=== PATIENT | female | born 1980 | race Caucasian/White ===

== ENCOUNTER 2017-04-13 17:31 | Emergency (ER) | payer BC, MEDICAID ==
[~2017-04-13] VITALS: Ht 154.9 cm; Wt 113.4 kg
[2017-04-13 17:59] LABS: BILIRUBIN,URINE NEGATIVE (NEG); GLUCOSE,URINE NEGATIVE (NEG); NITRITE,URINE POSITIVE (NEG); PH,URINE 5.5; PROTEIN,URINE NEGATIVE (NEG-TRACE); UROBILINOGEN,URINE 0.2 mg/dL (0.2 mg/dL)
[2017-04-13 18:05] LABS: BACTERIA,URINE MANY /HPF (0-FEW); SQUAMOUS EPITHELIAL CELL,UR MANY /LPF; WBC,URINE TNTC /HPF (0-4)
--- NOTE | 2017-04-13 18:17 | PHYS DOC ---
Past Medical History Past Medical History: Diabetes-Type II, Hypertension, Kidney Infection Additional Past Medical Histor: MS (has been in wheelchair for past 12 years) Past Surgical History: Appendectomy Alcohol Use: None Drug Use: None Adult General Chief Complaint Chief Complaint: FLANK PAIN HPI HPI 36-year-old female presenting to the emergency department with suprapubic abdominal pain and bilateral flank pain. The patient is been present for more than 24 hours. It is a moderate pain that is nonradiating intermittent throbbing and not associated with any vomiting chest pain or shortness of breath. She reports a history of UTIs in the past. She denies any numbness, weakness or tingling. She denies urinary incontinence. She denies perineal paresthesias. Review of systems is negative for chest pain shortness of breath fevers chills. All other review of systems is negative unless otherwise noted in history of present illness. ED course: 36-year-old female with bilateral flank pain and suprapubic abdominal pain consistent with possible pyelonephritis. Vital signs show hypertension but otherwise the patient is afebrile with a normal heart rate. Urine Analysis suggestive of UTI. The patient was then treated with oral Levaquin to follow-up with her primary care physician in 4-5 days. Oral pain medication prescribed. The patient was then discharged home in stable condition to follow up with their primary care physician over the next 2-3 days. They were to return if their symptoms worsened or if they were concerned for any reason. [id number] discharge instructions and return precautions were given. Patient's questions were answered to their satisfaction. Patient is comfortable plan. Review of Systems Review of Systems SEE ABOVE. Allergies Allergies Allergies Coded Allergies Type Severity Reaction Last Updated Verified No Known Drug Allergies 04/13/17 No Physical Exam Physical Exam Constitutional: Well developed, well nourished, no acute distress, non-toxic appearance. [] HENT: Normocephalic, atraumatic, bilateral external ears normal, oropharynx moist, no oral exudates, nose normal. [] Eyes: PERRLA, EOMI, conjunctiva normal, no discharge. [] Neck: Normal range of motion, no tenderness, supple, no stridor. [] Cardiovascular:Heart rate regular rhythm, no murmur [] Lungs & Thorax: Bilateral breath sounds clear to auscultation [] Abdomen: Soft nontender abdomen without rebound tenderness or guarding present. Negative McBurneys point. Negative Lewis sign. No ecchymosis present. Skin: Warm, dry, no erythema, no rash. [] Back: No midline tenderness present. No lacerations abrasions ecchymosis or fluctuance. mild bilateral CVA tenderness present. Extremities: No tenderness, no cyanosis, no clubbing, ROM intact, no edema. [] Neurologic: Alert and oriented X 3, normal motor function, normal sensory function, no focal deficits noted. [] Psychologic: Affect normal, judgement normal, mood normal. [] Current Patient Data Vital Signs Vital Signs Date Time Temp Pulse Resp B/P (MAP) Pulse Ox O2 Delivery O2 Flow Rate FiO2 04/13/17 18:00 98 20 191/84 (119) 100 04/13/17 17:47 97.8 Room Air 97.8 Lab Values Laboratory Tests Test 04/13/17 16:56 04/13/17 17:45 POC Urine HCG, Qualitative Hcg negative (Negative) Urine Collection Type Void Urine Color Yellow Urine Clarity Turbid Urine pH 5.5 Urine Specific [place] 1.020 Urine Protein Negative mg/dL (NEG-TRACE) Urine Glucose (UA) Negative mg/dL (NEG) Urine Ketones (Stick) Negative mg/dL (NEG) Urine Blood Moderate (NEG) Urine Nitrite Positive (NEG) Urine Bilirubin Negative (NEG) Urine Urobilinogen Dipstick 0.2 mg/dL (0.2 mg/dL) Urine Leukocyte Esterase Large (NEG) Urine RBC 1-2 /HPF (0-2) Urine WBC Tntc /HPF (0-4) Urine Squamous Epithelial Cells Many /LPF Urine Bacteria Many /HPF (0-FEW) Urine Mucus Marked /LPF EKG EKG [] Radiology/Procedures Radiology/Procedures [] Course & Med Decision Making Course & Med Decision Making Pertinent Labs and Imaging studies reviewed. (See chart for details) [] Dragon Disclaimer Dragon Disclaimer This electronic medical record was generated, in whole or in part, using a voice recognition dictation system. Departure Departure Impression: Primary Impression: Pyelonephritis Disposition: HOME, SELF-CARE Condition: STABLE Referrals: MARIELOS MASSEY MD Patient Instructions: Pyelonephritis, Adult Additional Instructions: Thank you for allowing us to participate in your care today. Followup with your primary care physician in 3 days if your symptoms do not improve. Call your Primary Doctor tomorrow and inform them of your visit today. If you do not have a primary care provider you can ask for a list of our primary care providers. Return to the emergency department you have any new or concerning findings. This should be evaluated by the primary care physician and any necessary consulting services for continued management within a few days after discharge. Return to emergency room if you have any new or concerning symptoms including but not limited to fever, chills, nausea, vomiting, intractable pain, any new rashes, chest pain, shortness of air, uncontrolled bleeding, difficulty breathing, and/or vision loss. Scripts Levofloxacin (LEVOFLOXACIN) 500 Mg Tablet 1 TAB PO DAILY, #10 TAB 0 Refills Prov: MARGARET CRANE MD 04/13/17 Hydrocodone Bit/Acetaminophen (HYDROCODONE-APAP 5-325 ) 1 Each Tablet 1 TAB PO PRN Q6HRS Y for PAIN, #15 TAB 0 Refills Be careful as this medication may cause you to be drowsy or tired. Do not drive on this medication. Prov: MARGARET CRANE MD 04/13/17 MARGARET CRANE MD Apr 13, 2017 18:17
[2017-04-13] MEDS ORDERED: LEVO500T8 PO (18:20)
[2017-04-13] MEDS ORDERED: HYDR-2758 PO (18:20)
[2017-04-13 18:27] VITALS: BP 168/77
== END 2017-04-13 19:05 | disposition home or self-care (01) ==
LOC: ER 17:31
DX: N12 Tubulo-interstitial nephritis, not specified as acute or chronic (principal); I10 Essential (primary) hypertension; E11.9 Type 2 diabetes mellitus without complications; G35 Multiple sclerosis; Z90.49 Acquired absence of other specified parts of digestive tract
CPT/HCPCS: 81001; 81025; 87086; 87186; 99284

== ENCOUNTER 2020-10-17 12:54 | Inpatient (IN) | payer BC, MEDICAID ==
[~2020-10-17] VITALS: Ht 154.9 cm; Wt 113.0 kg
[~2020-10-17 12:54] MED LIST: ALBU2.5V14 NEB; ALPR0.5T6 PO; AMLO-186 PO; BUDE10.2 IH; HYDR-2761 PO; LEVO500T8 PO; LOSA100T14 PO; PANT40TA77 PO; VENTOLIN HFA18 GM INH
[2020-10-17] MEDS ORDERED: ACETAMINOPHEN 325 MG TABLET. PO ONE (13:15)
[2020-10-17] MEDS ORDERED: IV NORMAL SALINE 1000ML BAG 1,000 ML IV ONE ×2 (13:15)
[2020-10-17] MEDS ORDERED: ONDANSETRON PF 4 MG/2 ML VIAL. IVP ONE (13:15)
[2020-10-17] MEDS ORDERED: PIPERACILLIN/TAZOBACTAM 3.375 GM in IV NORMAL SALINE 50ML 50 ML IV ONE (13:15)
[2020-10-17] MEDS ORDERED: methylPREDNISolone SOD SUCC PF 125 MG/2 ML VIAL. IV ONE (13:15)
[2020-10-17] MEDS ORDERED: fentaNYL PF VIAL 100 MCG/2 ML VIAL IVP ONE (13:15)
[2020-10-17 13:22] LABS: BASO % 0 % (0-3); EOS % 0 % (0-3); HEMATOCRIT 37.4 % (36.0-47.0); HEMOGLOBIN 12.5 g/dL (12.0-15.5); LYMPH # 0.3 x10^3/uL (1.0-4.8); LYMPH % 3 % (24-48); MEAN CORPUSCULAR HEMOGLOBIN 27 pg (25-35); MEAN CORPUSCULAR HGB CONC 33 g/dL (31-37); MEAN CORPUSCULAR VOLUME 79 fL (79-100); MONO # 0.1 x10^3/uL (0.0-1.1); MONO % 2 % (0-9); NEUT # 7.2 x10^3/uL (1.8-7.7); NEUT % 95 % (31-73); PLATELET COUNT 188 x10^3/uL (140-400); RED BLOOD COUNT 4.73 x10^6/uL (3.50-5.40); RED CELL DISTRIBUTION WIDTH 14.7 % (11.5-14.5); WHITE BLOOD COUNT 7.6 x10^3/uL (4.0-11.0)
--- NOTE | 2020-10-17 13:22 | PHYS DOC ---
Past Medical History Past Medical History: Asthma, Diabetes-Type II, Hypertension, Kidney Infection Additional Past Medical Histor: MS (has been in wheelchair for past 12 years) Past Surgical History: Appendectomy Smoking Status: Former Smoker Alcohol Use: None Drug Use: None General Adult EDM: Chief Complaint: NAUSEA/VOMITING/DIARRHA HPI: HPI: Patient is a 39 year old Female who presents with here by EMS for 2 days of nausea, vomiting, diarrhea, dizziness, epigastric pain from vomiting, wheezing and shortness of breath. Patient states she cannot keep anything down. Patient does have a fever of 100.6 axillary in the ED. patient states she has not been taking any of your medications due to her vomiting. Patient is hypertensive in the 200s over 100s in the ED. Heart rate is 126. Patient rates her pain a 7 out of 10 in the epigastric area. Patient denies headache, chest pain, numbness or tingling, focal weakness, back pain, urinary symptoms, syncope. Patient has a history of hypertension, kidney infection, diabetes, MS of which she has been wheelchair bound for 12 years, appendectomy, asthma, former smoker. Review of Systems: Review of Systems: Constitutional: + fever or chills. [] Eyes: Denies change in visual acuity. [] HENT: Denies nasal congestion or sore throat. [] Respiratory: Denies cough or +shortness of breath. [] Cardiovascular: Denies chest pain or edema. [] GI: + Epigastric abdominal pain, +nausea, +vomiting, denies bloody stools or +diarrhea. [] : Denies dysuria. [] Musculoskeletal: Denies back pain or joint pain. [] Integument: Denies rash. [] Neurologic: Denies headache, focal weakness or sensory changes. + Lightheaded [] Endocrine: Denies polyuria or polydipsia. [] Lymphatic: Denies swollen glands. [] Psychiatric: Denies depression or anxiety. [] Heart Score: C/O Chest Pain: No Risk Factors: Risk Factors: DM, Current or recent (<one month) smoker, HTN, HLP, family history of CAD, obesity. Risk Scores: Score 0 - 3: 2.5% MACE over next 6 weeks - Discharge Home Score 4 - 6: 20.3% MACE over next 6 weeks - Admit for Clinical Observation Score 7 - 10: 72.7% MACE over next 6 weeks - Early Invasive Strategies Current Medications: Current Medications Medications (Trade) Dose Ordered Sig/Bryan Start Time Stop Time Status Last Admin Dose Admin Albuterol Sulfate (Ventolin Neb Soln) 2.5 mg 1X ONCE 10/17/20 13:15 10/17/20 13:16 UNV Fentanyl Citrate (Fentanyl 2ml Vial) 50 mcg 1X ONCE 10/17/20 13:15 10/17/20 13:16 UNV Methylprednisolone Sodium Succinate (SOLU-Medrol 125MG VIAL) 125 mg 1X ONCE 10/17/20 13:15 10/17/20 13:16 UNV Ondansetron HCl (Zofran) 4 mg 1X ONCE 10/17/20 13:15 10/17/20 13:16 UNV Piperacillin Sod/ Tazobactam Sod 3.375 gm/Sodium Chloride 50 ml @ 100 mls/hr 1X ONCE 10/17/20 13:15 10/17/20 13:44 UNV Sodium Chloride 1,000 ml @ 1,000 mls/hr 1X ONCE 10/17/20 13:15 10/17/20 14:14 UNV Allergies: Allergies: Allergies Coded Allergies Type Severity Reaction Last Updated Verified No Known Drug Allergies 07/14/17 No Physical Exam: PE: Constitutional: Well developed, well nourished, no acute distress, non-toxic appearance. Febrile [] HENT: Normocephalic, atraumatic, bilateral external ears normal, oropharynx moist, no oral exudates, nose normal. [] Eyes: PERRLA, EOMI, conjunctiva normal, no discharge. [] Neck: Normal range of motion, no tenderness, supple, no stridor. [] Cardiovascular:Heart rate regular rhythm, no murmur [] Lungs & Thorax: Bilateral upper breath sounds wheezing in lower bases diminished to auscultation [] Abdomen: Bowel sounds normal, soft, no tenderness, no masses, no pulsatile masses. [] Skin: Warm, dry, no erythema, no rash. [] Back: No tenderness, no CVA tenderness. [] Extremities: No tenderness, no cyanosis, no clubbing, ROM intact, no edema. [] Neurologic: Alert and oriented X 3, normal motor function, normal sensory function, no focal deficits noted. [] Psychologic: Affect normal, judgement normal, mood normal. [] EKG: EKG: Sinus tach at [address] Tay Radiology/Procedures: Radiology/Procedures: [] Impression: [place] [id number] [place] [id number] IMAGING REPORT Signed PATIENT: EDGARDO MORA JACCOUNT: [id number] : 1980 LOCATION: ER AGE: 39 SEX: F EXAM STATUS: REG ER ORD. PHYSICIAN: ELIPDIO GRANADOS APRN REASON: wheezing, soa, PROCEDURE: PORTABLE CHEST 1V AP chest. HISTORY: Wheezing, short of air AP view was taken of the chest. Patient's taken a poor inspiration. There are no confluent infiltrates. Heart is normal in size. IMPRESSION: 1. No acute infiltrates. Electronically signed by: Lukasz Mccray MD (10/17/2020 2:03 PM) [id number] DICTATED and SIGNED BY: LUKASZ MCCRAY MD DATE: 10/17/20 [id number] [place] [id number] [place] [address] IMAGING REPORT Signed PATIENT: EDGARDO MORA JACCOUNT: [id number] : 1980 LOCATION: ER AGE: 39 SEX: F EXAM STATUS: REG ER ORD. PHYSICIAN: ELPIDIO GRANADOS APRN REASON: fever, diarrhea, vomiting PROCEDURE: CT ABD PELV W/ IV CONTRST ONLY Exam: CT of abdomen and pelvis with contrast INDICATION: Fever, diarrhea, vomiting TECHNIQUE: Sequential axial images through the abdomen and pelvis obtained following the administration of 75 mL of Omni 300 IV contrast. Sagittal and coronal reformatted images were reconstructed from the axial data and reviewed. Comparisons: None FINDINGS: Heart size is normal. No pericardial. Visualized lung bases are clear. No pleural effusion. There is diffuse hepatic steatosis. Spleen, pancreas, and adrenals are unremarkable. Gallbladder surgically absent. No perinephric inflammation or hydronephrosis. No renal or ureteral calculi are identified. Bladder is distended and appears thin-walled. Uterus is not enlarged. No abnormal adnexal mass. Large and small bowel are unremarkable. Appendix is not identified. No free intra-abdominal air or fluid. No obstruction. Abdominal aorta has a normal course and caliber. Abdominal vasculature is patent. No enlarged intra-abdominal lymph nodes are identified. No suspicious osseous lesions or acute fractures. IMPRESSION: 1. No acute processes identified within the abdomen or pelvis. 2. Diffuse hepatic steatosis. Exposure: One or more of the following in the visualized dose reduction techniques were utilized for this examination: 1. Automated exposure control 2. Adjustment of the MA and/or KV according to patient size 3. Use of iterative of reconstructive technique Electronically signed by: Eddie Stewart MD (10/17/2020 3:33 PM) [facility] DICTATED and SIGNED BY: EDDIE STEWART MD DATE: 10/17/20 [id number] Course & Med Decision Making: Course & Med Decision Making Pertinent Labs and Imaging studies reviewed. (See chart for details) See HPI. Alert and oriented x4. Patient is hyperventilating in the room. Speaks in full clear sentences. Skin is pink, warm and dry. Patient does have some audible wheezing. She has slight wheezing in the upper lobes bilaterally but diminished in lower bases. Abdomen is soft and nontender. She is morbidly obese. No extremity edema. Patient did dip down wants to 88% on room air. Nurse put her on 2 L of oxygen. ABG was done before this occurrence and was done on room air. Patient remains at 96 to 97% on 2L. I did have Dr. Tay look over the ABG. I have spoken to Dr. Banegas for admission. Patient has gotten 2 L of normal saline and Zosyn in the ED. She is a sepsis alert. Heart rate is down to 99. [] Dragon Disclaimer: Dragon Disclaimer: This electronic medical record was generated, in whole or in part, using a voice recognition dictation system. Date and Time of Reassessment Date: Oct 17, 2020 Time: 13:20 Fluid Challenge Is the fluid challenge complet: No IBW Target Volume Used: No BMI > 30: Yes Vital Signs Temperature Source: Axillary Respirations Respiratory Effort: Non-Labored Respiratory Pattern: Tachypnea Cardiovascular Pulse Rhythm: Regular Heart: Nml S1, S2, no murmurs Lung Sounds Breath Sounds: Wheezes Capillary Refil Capillary Refill: Rt Hand < 3 seconds Peripheral Pulse Pulse Location: Radial Pulse Strength: Normal (2+) Pulse Assessment Method: Monitor Integumentary Skin: Warm Skin Moisture: Dry Skin Turgor: Normal Skin Color: warm Fingernail Color: WNL COVID-19 Patient Risks: Age 65 or older: No Sign of co-morbidity: Yes Exp to person + for COVID: No Exp to PUI: No Travel from affected area: No Lower respiratory symptoms: Yes Fever: Yes Other: Yes (N/V/D) PPE Use: Full PPE with N95 mask or PAPR: Yes Departure Departure Impression: Primary Impression: Sepsis Qualified Codes: A41.9 - Sepsis, unspecified organism Additional Impression: Hypoxia Disposition: 09 ADMITTED INPT THIS HOSP Admitting Physician: SHAVON Condition: STABLE Referrals: EVARISTO WILCOX (PCP) ELPIDIO GRANADOS APRN Oct 17, 2020 13:22
[2020-10-17] MEDS ORDERED: ALBUTEROL SULFATE 8GM INHALER. INH ONE (13:30)
[2020-10-17 13:54] LABS: BASE EXCESS COOX -4 mmol/L (-3-3); HCO3 COOX 20 mmol/L (21-28); METHEMOGLOBIN 0.6 % (0.0-1.9); OXYHEMOGLOBIN 90.5 %; PCO2 COOX 32 mmHg (35-46); PO2 COOX 62 mmHg (75-108); SAT O2 COOX 91 % (92-99)
--- NOTE | 2020-10-17 14:06 | RAD ---
AP chest. HISTORY: Wheezing, short of air AP view was taken of the chest. Patient's taken a poor inspiration. There are no confluent infiltrate s. Heart is normal in size. IMPRESSION: 1. No acute infiltrates. Electronically signed by: Lukasz Mccray MD (10/17/2020 2:03 PM) [id number]
[2020-10-17 14:14] LABS: CALCIUM 8.2 mg/dL (8.5-10.1); CREATININE 0.8 mg/dL (0.6-1.0); GFR 79.4; POTASSIUM 3.7 mmol/L (3.5-5.1)
[2020-10-17 14:21] LABS: ALBUMIN 3.2 g/dL (3.4-5.0); ALBUMIN/GLOBULIN RATIO 0.7 (1.0-1.7); TOTAL BILIRUBIN 0.7 mg/dL (0.2-1.0); TOTAL PROTEIN 7.6 g/dL (6.4-8.2)
[2020-10-17 14:28] LABS: BILIRUBIN,URINE NEGATIVE (NEG); CLARITY,URINE CLEAR; COLOR,URINE YELLOW; NITRITE,URINE NEGATIVE (NEG); PH,URINE 5.5 (<5.0-8.0); PROTEIN,URINE 100 mg/dL (NEG-TRACE)
[2020-10-17] MEDS ORDERED: IOHEXOL 300 MG/ML 100ML VIAL. IV ONE (14:30)
[2020-10-17 14:42] LABS: BACTERIA,URINE MODERATE /HPF (0-FEW)
[2020-10-17 14:43] LABS: RBC,URINE RARE /HPF (0-2); U PREG PATIENT NEGATIVE (NEG)
[2020-10-17] MEDS ORDERED: CONTRAST GIVEN. MC PRN (14:45)
[2020-10-17 15:03] LABS: % BANDS 6 % (0-9); % LYMPHS 3 % (24-48); % MONOS 1 % (0-10); % SEGS 90 % (35-66); PLT ESTIMATE ADEQUATE (ADEQUATE)
--- NOTE | 2020-10-17 15:36 | RAD ---
Exam: CT of abdomen and pelvis with contrast INDICATION: Fever, diarrhea, vomiting TECHNIQUE: Sequential axial images through the abdomen and pelvis obtained following the administrati on of 75 mL of Omni 300 IV contrast. Sagittal and coronal reformatted images were reconstructed from the axial data and reviewed. Comparisons: None FINDINGS: Heart size is normal. No pericardial. Visualized lung bases are clear. No pleural effusion. There is diffuse hepatic steatosis. Spleen, pancreas, and adrenals are unremarkable. Gallbladder surg ically absent. No perinephric inflammation or hydronephrosis. No renal or ureteral calculi are identified. Bladder is distended and appears thin-walled. Uterus is not enlarged. No abnormal adnexal mass. Large and small bowel are unremarkable. Appendix is not identified. No free intra-abdominal air or fl uid. No obstruction. Abdominal aorta has a normal course and caliber. Abdominal vasculature is patent. No enlarged intra-abdominal lymph nodes are identified. No suspicious osseous lesions or acute fractures. IMPRESSION: 1. No acute processes identified within the abdomen or pelvis. 2. Diffuse hepatic steatosis. Exposure: One or more of the following in the visualized dose reduction techniques were utilized for this examination: 1. Automated exposure control 2. Adjustment of the MA and/or KV according to patient size 3. Use of iterative of reconstructive technique Electronically signed by: Eddie Sanon MD (10/17/2020 3:33 PM) [facility]
[2020-10-17 16:00] LABS: PROTHROMBIN TIME PATIENT 13.3 SEC (11.7-14.0)
[2020-10-17] MEDS ORDERED: ONDANSETRON PF 4 MG/2 ML VIAL. IV PRN (16:00)
[2020-10-17 17:11] LABS: INFLUENZA A PATIENT NEGATIVE (NEGATIVE); INFLUENZA B PATIENT NEGATIVE (NEGATIVE)
--- NOTE | 2020-10-17 18:45 | HP ---
ADMIT DATE: 10/17/2020 CHIEF COMPLAINT: Nausea, vomiting, diarrhea. HISTORY OF PRESENT ILLNESS: The patient is a pleasant 39-year-old female who presented with nausea, vomiting and diarrhea. She came in by EMS to the Emergency Room. This has been occurring for 2 days. She has some associated dizziness, rated at 9/10. She tried increasing her home meds, but that did not work. Food makes it worse, sitting still makes it better. While in the ER, she was also hypertensive with pressures in the 200/100. She is tachycardic with a heart rate of 126. It appears to be septic. We are not exactly sure of the source of the sepsis, but clinically she seems to possibly have pneumonia. We are going to admit the patient and consult Infectious Disease. PAST MEDICAL HISTORY: Asthma, diabetes, hypertension, urinary tract infection, MS (she has been in a wheelchair for the past 12 years), appendectomy, previous tobacco abuse. ALLERGIES: None. FAMILY HISTORY: Hypertension. SOCIAL HISTORY: She used to smoke. No drink or drugs. MEDICATIONS: Reviewed, please see the MRAD. REVIEW OF SYSTEMS: GENERAL: No history of weight change, weakness or fevers. SKIN: No bruising, hair changes or rashes. EYES: No blurred, double or loss of vision. NOSE AND THROAT: No history of nosebleeds, hoarseness or sore throat. HEART: No history of palpitations, chest pain or shortness of breath on exertion. LUNGS: Denies cough, hemoptysis, wheezing or shortness of breath. GASTROINTESTINAL: She complains of nausea, vomiting and diarrhea. GENITOURINARY: No history of frequency, urgency, hesitancy or nocturia. NEUROLOGIC: Denies history of numbness, tingling, tremor or weakness. PSYCHIATRIC: No history of panic, anxiety or depression. ENDOCRINE: No history of heat or cold intolerance, polyuria or polydipsia. EXTREMITIES: Denies muscle weakness, joint pain, pain on walking or stiffness. PHYSICAL EXAMINATION: VITALS: Within normal limits and are stable. GENERAL: No apparent distress. Alert and oriented. HEENT: Normal cephalic atraumatic, external auditory canals are patent EYES: Extraocular muscles are intact, pupils are equally round and reactive to light and accommodation MUSCULOSKELETAL: Well developed, well nourished, good range of motion ENDOCRINE: No thyromegaly was palpated LYMPHATICS: No cervical chain or axillary nodes were noted HEMATOPOIETIC: No bruising NECK: Supple, no JVD, no thyromegaly was noted. LUNGS: Clear to auscultation in all lung wolff without rhonchi or wheezing. HEART: RRR, S1, S2 present. Peripheral pulses intact, no obvious murmurs were noted. ABDOMEN: Soft, nontender. Positive bowel sounds no organomegaly, normal bowel sounds. EXTREMITIES: Without any cyanosis, clubbing, or edema. Pedal pulses intact, Homans sign is negative. NEUROLOGIC: Normal speech, normal tone. A & O x3, moves all extremities, no obvious focal deficits. PSYCHIATRIC: Normal affect, normal mood. Stable. SKIN: No ulcerations or rashes, good skin turgor, no jaundice. VASCULAR: Good capillary refill, neurovascular bundle appears to be intact. LABORATORY DATA: White count 7, hemoglobin 12, platelets 188. Electrolytes are pending. Troponin is 0. Acetone level is negative. Urinalysis, trace leukocyte esterase, 1-4 white cells. ABG: pH 7.42, pCO2 of 32, pO2 of 62 with 91% sat, and that was on room air. Influenza testing is negative. Abdominal CT negative except for diffuse hepatic steatosis. ASSESSMENT AND PLAN: Sepsis with fevers, slight urinary tract infection and hypoxia with probable clinical pneumonia. The patient will be admitted. We will start IV antibiotics. Consult Infectious Disease. Consult Pulmonary. Home meds. Deep venous thrombosis prophylaxis. Full code. IV fluids. Trend labs. O2 per nasal cannula. Rule out COVID-19. PROGNOSIS: Guarded. CHRISTIAN PEREZ DO DR: RUSTY/haresh JOB#: [id number] / [id number]
[2020-10-17 23:00] VITALS: BP 130/63
[2020-10-18 03:00] VITALS: BP 127/60
[2020-10-18 07:00] VITALS: BP 137/75
[2020-10-18] MEDS ORDERED: insulin SQ (07:52)
[2020-10-18] MEDS ORDERED: ACETAMINOPHEN 325 MG TABLET. PO PRN (09:15)
--- NOTE | 2020-10-18 09:45 | PDOC2 ---
GI CONSULT Date of Service: DATE: 10/18/20 TIME: 09:45 Reason For Consult: n/v, diarrhea, fever HPI: HPI: 39 y/o female who we have seen in the past. Tells me ill for a couple days but currently feeling well. Initially can't recall any GI symptoms, then remembers she had vomiting and diarrhea. Denies precipitating events. Might have had a fever. Denies reflux/heartburn, dysphagia, hematemesis, hematochezia, melena, constipation, and weight loss. Also denies abdominal pain. From past encounter, h/o intermittent diarrhea. EGD by Dr. James for dysphagia in 07/2017 showed mild reflux (biopsy from mid esophagus c/w reflux, no Toribio's), +H. pylori gastritis, and normal duodenum. Unclear if took treatment for H. pylori. Barium swallow in 2016 showed decreased esophageal peristalsis. No previous colonoscopy. S/p cholecystectomy - she doesn't really remember details. Denies liver, pancreas, and PUD history. Hepatic steatosis on imaging. Fever, HTN, and tachycardia noted in ER. PMH: PMH: HTN, asthma, DM, pneumonia, pyelonephritis, ?MS appendectomy FH: Family History: Other ("I don't really know") Social History: Smoke: Quit ALCOHOL: none Drugs: None ROS: GEN: +fever HEENT: Denies blurred vision, sore throat CV: Denies chest pain RESP: Denies shortness of air, cough GI: Per HPI : Denies hematuria, dysuria ENDO: Denies weight changes NEURO: +dizziness MSK: Denies weakness, joint pain/swelling SKIN: Denies jaundice, pruritus Vitals: Vitals: Vital Signs Date Time Temp Pulse Resp B/P (MAP) Pulse Ox O2 Delivery O2 Flow Rate FiO2 10/18/20 07:00 98.1 89 17 137/75 (95) 96 Room Air 98.1 10/17/20 19:13 2.0 Labs: Labs: Laboratory Tests Test 10/17/20 13:06 10/17/20 13:40 10/17/20 14:13 10/17/20 16:45 White Blood Count 7.6 x10^3/uL (4.0-11.0) Red Blood Count 4.73 x10^6/uL (3.50-5.40) Hemoglobin 12.5 g/dL (12.0-15.5) Hematocrit 37.4 % (36.0-47.0) Mean Corpuscular Volume 79 fL (79-100) Mean Corpuscular Hemoglobin 27 pg (25-35) Mean Corpuscular Hemoglobin Concent 33 g/dL (31-37) Red Cell Distribution Width 14.7 % (11.5-14.5) Platelet Count 188 x10^3/uL (140-400) Neutrophils (%) (Auto) 95 % (31-73) Lymphocytes (%) (Auto) 3 % (24-48) Monocytes (%) (Auto) 2 % (0-9) Eosinophils (%) (Auto) 0 % (0-3) Basophils (%) (Auto) 0 % (0-3) Neutrophils # (Auto) 7.2 x10^3/uL (1.8-7.7) Lymphocytes # (Auto) 0.3 x10^3/uL (1.0-4.8) Monocytes # (Auto) 0.1 x10^3/uL (0.0-1.1) Eosinophils # (Auto) 0.0 x10^3/uL (0.0-0.7) Basophils # (Auto) 0.0 x10^3/uL (0.0-0.2) Segmented Neutrophils % 90 % (35-66) Band Neutrophils % 6 % (0-9) Lymphocytes % 3 % (24-48) Monocytes % 1 % (0-10) Platelet Estimate Adequate (ADEQUATE) Prothrombin Time 13.3 SEC (11.7-14.0) Prothromb Time International Ratio 1.1 (0.8-1.1) Sodium Level 134 mmol/L (136-145) Potassium Level 3.7 mmol/L (3.5-5.1) Chloride Level 99 mmol/L (98-107) Carbon Dioxide Level 19 mmol/L (21-32) Anion Gap 16 (6-14) Blood Urea Nitrogen 13 mg/dL (7-20) Creatinine 0.8 mg/dL (0.6-1.0) Estimated GFR (Cockcroft-Gault) 79.4 BUN/Creatinine Ratio 16 (6-20) Glucose Level 146 mg/dL (70-99) Lactic Acid Level 2.6 mmol/L (0.4-2.0) 2.1 mmol/L (0.4-2.0) Calcium Level 8.2 mg/dL (8.5-10.1) Total Bilirubin 0.7 mg/dL (0.2-1.0) Aspartate Amino Transf (AST/SGOT) 79 U/L (15-37) Alanine Aminotransferase (ALT/SGPT) 90 U/L (14-59) Alkaline Phosphatase 94 U/L (46-116) Troponin I Quantitative < 0.017 ng/mL (0.000-0.055) CO-Kuy-H-Type Natriuretic Peptide 63 pg/mL (0-124) Total Protein 7.6 g/dL (6.4-8.2) Albumin 3.2 g/dL (3.4-5.0) Albumin/Globulin Ratio 0.7 (1.0-1.7) Lipase 93 U/L (73-393) Acetone Level Neg (NEG) O2 Saturation 91 % (92-99) Arterial Blood pH 7.42 (7.35-7.45) Arterial Blood pCO2 at Patient Temp 32 mmHg (35-46) Arterial Blood pO2 at Patient Temp 62 mmHg (75-108) Arterial Blood HCO3 20 mmol/L (21-28) Arterial Blood Base Excess -4 mmol/L (-3-3) Oxyhemoglobin 90.5 % Methemoglobin 0.6 % (0.0-1.9) Carbon Monoxide, Quantitative 0.0 % (0.0-1.9) FiO2 21 Urine Collection Type Void Urine Color Yellow Urine Clarity Clear Urine pH 5.5 (<5.0-8.0) Urine Specific [place] 1.025 (1.000-1.030) Urine Protein 100 mg/dL (NEG-TRACE) Urine Glucose (UA) Negative mg/dL (NEG) Urine Ketones (Stick) 40 mg/dL (NEG) Urine Blood Negative (NEG) Urine Nitrite Negative (NEG) Urine Bilirubin Negative (NEG) Urine Urobilinogen Dipstick 1.0 mg/dL (0.2 mg/dL) Urine Leukocyte Esterase Trace (NEG) Urine RBC Rare /HPF (0-2) Urine WBC 1-4 /HPF (0-4) Urine Squamous Epithelial Cells Many /LPF Urine Bacteria Moderate /HPF (0-FEW) Urine Mucus Marked /LPF Urine Test Negative (NEG) Influenza Type A Antigen Negative (NEGATIVE) Influenza Type B Antigen Negative (NEGATIVE) Test 10/17/20 21:57 10/18/20 08:26 Glucose (Fingerstick) 222 mg/dL (70-99) 172 mg/dL (70-99) Allergies: Coded Allergies: No Known Drug Allergies (Unverified , 07/14/17) Medications: Current Medications Medications (Trade) Dose Ordered Sig/Bryan Route PRN Reason Start Time Stop Time Status Last Admin Dose Admin Methylprednisolone Sodium Succinate (SOLU-Medrol 125MG VIAL) 125 mg 1X ONCE IV 10/17/20 13:15 10/17/20 13:17 DC 10/17/20 13:36 Fentanyl Citrate (Fentanyl 2ml Vial) 50 mcg 1X ONCE IVP 10/17/20 13:15 10/17/20 13:17 DC 10/17/20 13:37 Albuterol Sulfate (Ventolin Hfa) 1 puff 1X ONCE INH 10/17/20 13:30 10/17/20 13:31 DC 10/17/20 13:42 Ondansetron HCl (Zofran) 4 mg 1X ONCE IVP 10/17/20 13:15 10/17/20 13:17 DC 10/17/20 13:36 Sodium Chloride 1,000 ml @ 1,000 mls/hr 1X ONCE IV 10/17/20 13:15 10/17/20 14:14 DC 10/17/20 13:36 Piperacillin Sod/ Tazobactam Sod 3.375 gm/Sodium Chloride 50 ml @ 100 mls/hr 1X ONCE IV 10/17/20 13:15 10/17/20 13:44 DC 10/17/20 13:37 Acetaminophen (Tylenol) 650 mg 1X ONCE PO 10/17/20 13:15 10/17/20 13:24 DC 10/17/20 13:52 Sodium Chloride 1,000 ml @ 1,000 mls/hr 1X ONCE IV 10/17/20 13:15 10/17/20 14:14 DC 10/17/20 13:53 Iohexol (Omnipaque 300 Mg/ml) 75 ml 1X ONCE IV 10/17/20 14:30 10/17/20 14:31 DC 10/17/20 15:00 Acetaminophen (Tylenol) 650 mg PRN Q6HRS PRN PO MILD PAIN / TEMP > 100.3'F 10/18/20 09:15 10/18/20 09:11 Imaging: Imaging: CXR 10/17 IMPRESSION: 1. No acute infiltrates. CT A/P 10/17 IMPRESSION: 1. No acute processes identified within the abdomen or pelvis. 2. Diffuse hepatic steatosis. PE: GEN: NAD HEENT: Atraumatic, PERRL LUNGS: CTAB HEART: RRR ABD: NABS, S/ND/NT EXTREMITY: No edema SKIN: No rashes, no jaundice NEURO/PSYCH: A & O 3 A/P: A/P: Tachycardia, HTN, fever Lactic acidosis, ?UTI, mildly elevated AST and ALT Vomiting, diarrhea - resolved? H/o GERD and H. pylori CRC screen - average risk S/p cholecystectomy Hepatic steatosis -- Apparently better GI-[place], not a great historian. Await COVID, add acid-steelworker, observe. Could check stool studies if diarrhea recurs. ?needs H. pylori treatment ALBERT DAWN Oct 18, 2020 09:45
[2020-10-18 11:00] VITALS: BP 125/68
[2020-10-18] MEDS ORDERED: FAMOTIDINE 20 MG/2 ML VIAL IVP SCH (11:00)
--- NOTE | 2020-10-18 11:21 | NUR ---
SW following for discharge planning. Pt from home. Pt presented with nausea and vomiting. Pt on an ADA diet, COVID pending, room air. Pt on IV Zofran with consults to pulmonary, ID and GI. SW following. Addendum: 10/18/20 at 1330 by HIRA RUBI SW COVID results and results negative. Pt to discharge home self-care today, 10/18. Pt on room air and oral medications. No further SW needs at this time.
--- NOTE | 2020-10-18 11:24 | CONS ---
DATE OF CONSULTATION: PULMONARY CONSULTATION ATTENDING PHYSICIAN: Dr. Banegas. REASON FOR CONSULTATION: Possible pneumonia. HISTORY OF PRESENT ILLNESS: The patient is 39 years old who had smoked for about 20 years before quitting 15-20 years ago. She was brought into the hospital with nausea and vomiting. She was also dizzy. She did not have any shortness of breath. No cough. She had a fever of 100 degrees. She was hospitalized for possible sepsis. Her blood pressure was markedly elevated as well 200/100. Currently, she has a complete resolution of her symptoms. She is on room air and wants to go home. No cough. No chest pains. No leg edema. No focal weakness. PAST MEDICAL HISTORY: History of asthma, possible overlap with COPD, history of diabetes, hypertension, UTI. PAST SURGICAL HISTORY: Appendectomy. ALLERGIES: None. FAMILY HISTORY: Hypertension. SOCIAL HISTORY: Quit tobacco 20 years ago, before that smoked for about 20 years. MEDICATIONS: Reviewed as listed in the MRAD. REVIEW OF SYSTEMS: Ten-point system obtained. Pertinent positives discussed in my history of present illness, otherwise noncontributory. All systems that were negative were reviewed as well. PHYSICAL EXAMINATION: VITAL SIGNS: Reviewed. She is afebrile, blood pressure much stable, pulse ox 95% on room air. NECK: Supple. LUNGS: Clear. CARDIOVASCULAR: With a regular rate. ABDOMEN: Soft. EXTREMITIES: With no pitting edema. LABORATORY DATA: Influenza screen negative. Her BUN 13, creatinine 0.8. ABGs with a pO2 of 62 on admission on room air. IMPRESSION: 1. Nausea, vomiting with dizziness present on admission, currently resolved. Could be viral gastroenteritis. 2. Low-grade fever. It is resolved now. No symptoms suggestive of pneumonia. Her chest x-ray was clear. CT abdomen and pelvis with lower sections of the lungs were clear as well. 3. History of tobacco use, but clinically stable. RECOMMENDATIONS: 1. From a pulmonary standpoint, I do not see a need for further stay in the hospital. 2. She is clinically better. She has no pulmonary source of her fever. It could be viral gastroenteritis. 3. The patient could be discharged home from a pulmonary standpoint. 4. Discussed with RN. DIMITRY CONNELL MD DR: HUSAM/haresh JOB#: [id number] / [id number]
--- NOTE | 2020-10-18 11:48 | PDOC ---
Infectious Disease Note Vital Signs: Vital Signs Vital Signs Date Time Temp Pulse Resp B/P (MAP) Pulse Ox O2 Delivery O2 Flow Rate FiO2 10/18/20 11:00 98.1 80 17 125/68 (87) 97 Room Air 98.1 10/17/20 19:13 2.0 Medications: Inpatient Meds: Medications reviewed. Labs: Lab Laboratory Tests Test 10/17/20 13:06 10/17/20 13:40 10/17/20 13:57 10/17/20 14:13 White Blood Count 7.6 x10^3/uL (4.0-11.0) Red Blood Count 4.73 x10^6/uL (3.50-5.40) Hemoglobin 12.5 g/dL (12.0-15.5) Hematocrit 37.4 % (36.0-47.0) Mean Corpuscular Volume 79 fL (79-100) Mean Corpuscular Hemoglobin 27 pg (25-35) Mean Corpuscular Hemoglobin Concent 33 g/dL (31-37) Red Cell Distribution Width 14.7 % (11.5-14.5) Platelet Count 188 x10^3/uL (140-400) Neutrophils (%) (Auto) 95 % (31-73) Lymphocytes (%) (Auto) 3 % (24-48) Monocytes (%) (Auto) 2 % (0-9) Eosinophils (%) (Auto) 0 % (0-3) Basophils (%) (Auto) 0 % (0-3) Neutrophils # (Auto) 7.2 x10^3/uL (1.8-7.7) Lymphocytes # (Auto) 0.3 x10^3/uL (1.0-4.8) Monocytes # (Auto) 0.1 x10^3/uL (0.0-1.1) Eosinophils # (Auto) 0.0 x10^3/uL (0.0-0.7) Basophils # (Auto) 0.0 x10^3/uL (0.0-0.2) Segmented Neutrophils % 90 % (35-66) Band Neutrophils % 6 % (0-9) Lymphocytes % 3 % (24-48) Monocytes % 1 % (0-10) Platelet Estimate Adequate (ADEQUATE) Prothrombin Time 13.3 SEC (11.7-14.0) Prothromb Time International Ratio 1.1 (0.8-1.1) Sodium Level 134 mmol/L (136-145) Potassium Level 3.7 mmol/L (3.5-5.1) Chloride Level 99 mmol/L (98-107) Carbon Dioxide Level 19 mmol/L (21-32) Anion Gap 16 (6-14) Blood Urea Nitrogen 13 mg/dL (7-20) Creatinine 0.8 mg/dL (0.6-1.0) Estimated GFR (Cockcroft-Gault) 79.4 BUN/Creatinine Ratio 16 (6-20) Glucose Level 146 mg/dL (70-99) Lactic Acid Level 2.6 mmol/L (0.4-2.0) Calcium Level 8.2 mg/dL (8.5-10.1) Total Bilirubin 0.7 mg/dL (0.2-1.0) Aspartate Amino Transf (AST/SGOT) 79 U/L (15-37) Alanine Aminotransferase (ALT/SGPT) 90 U/L (14-59) Alkaline Phosphatase 94 U/L (46-116) Troponin I Quantitative < 0.017 ng/mL (0.000-0.055) NR-Lvf-Q-Type Natriuretic Peptide 63 pg/mL (0-124) Total Protein 7.6 g/dL (6.4-8.2) Albumin 3.2 g/dL (3.4-5.0) Albumin/Globulin Ratio 0.7 (1.0-1.7) Lipase 93 U/L (73-393) Acetone Level Neg (NEG) O2 Saturation 91 % (92-99) Arterial Blood pH 7.42 (7.35-7.45) Arterial Blood pCO2 at Patient Temp 32 mmHg (35-46) Arterial Blood pO2 at Patient Temp 62 mmHg (75-108) Arterial Blood HCO3 20 mmol/L (21-28) Arterial Blood Base Excess -4 mmol/L (-3-3) Oxyhemoglobin 90.5 % Methemoglobin 0.6 % (0.0-1.9) Carbon Monoxide, Quantitative 0.0 % (0.0-1.9) FiO2 21 Coronavirus (PCR) Not detected (Not Detected) Urine Collection Type Void Urine Color Yellow Urine Clarity Clear Urine pH 5.5 (<5.0-8.0) Urine Specific [place] 1.025 (1.000-1.030) Urine Protein 100 mg/dL (NEG-TRACE) Urine Glucose (UA) Negative mg/dL (NEG) Urine Ketones (Stick) 40 mg/dL (NEG) Urine Blood Negative (NEG) Urine Nitrite Negative (NEG) Urine Bilirubin Negative (NEG) Urine Urobilinogen Dipstick 1.0 mg/dL (0.2 mg/dL) Urine Leukocyte Esterase Trace (NEG) Urine RBC Rare /HPF (0-2) Urine WBC 1-4 /HPF (0-4) Urine Squamous Epithelial Cells Many /LPF Urine Bacteria Moderate /HPF (0-FEW) Urine Mucus Marked /LPF Urine Test Negative (NEG) Test 10/17/20 16:45 10/17/20 21:57 10/18/20 08:26 10/18/20 11:21 Lactic Acid Level 2.1 mmol/L (0.4-2.0) Influenza Type A Antigen Negative (NEGATIVE) Influenza Type B Antigen Negative (NEGATIVE) Glucose (Fingerstick) 222 mg/dL (70-99) 172 mg/dL (70-99) 144 mg/dL (70-99) Objective: Assessment: Patient seen and examined Consult dictated Plan: Plan of Care Okay to discharge home from ID standpoint Thank you [id number] JAMIR MCKOEN MD Oct 18, 2020 11:48
--- NOTE | 2020-10-18 12:38 | CONS ---
DATE OF CONSULTATION: 10/18/2020 INFECTIOUS DISEASE CONSULTATION HISTORY OF PRESENT ILLNESS: A 39-year-old female with history of MS, on no medication; currently presented to the ER with low-grade fever, nausea, vomiting, diarrhea and abdominal discomfort. In the ER, her blood pressure was 200/100. She was tachycardic, temperature of 100.6. White count was normal with lymphopenia. Lactate was 2.1. LFTs were borderline elevated. Bicarb of 19. Sodium of 134. Coronavirus negative. Influenza screen negative. UA showed trace leukocyte esterase, 1-4 wbc's. Chest x-ray showed no acute infiltrate. Abdomen and pelvic CT showed no acute process, diffuse hepatic steatosis. The patient was given normal saline bolus. She received 1 dose of Zosyn and prednisone and currently is on no antibiotics. Today, the patient feels better. She is back to baseline. She wants to go home. She denies any fevers, chills, nausea, vomiting, diarrhea, abdominal pain. PAST MEDICAL HISTORY: MS, on no medication; diabetes; hypertension; obesity; history of UTI. PAST SURGICAL HISTORY: Appendectomy. ALLERGIES: None. FAMILY HISTORY: As per HPI. SOCIAL HISTORY: Nonsmoker, no alcohol. , lives with and kid of 1 year. CURRENT MEDICATIONS: Reviewed. REVIEW OF SYSTEMS: Negative except for above in HPI. PHYSICAL EXAMINATION: VITAL SIGNS: Temperature 98.1, T-max 100.6, pulse 80, respirations 17, blood pressure 125/68, oxygen saturation 97% on room air. GENERAL: Alert, oriented x 3 female, sitting upright in bed, in no acute distress, appears comfortable, nontoxic appearing. HEENT: Normocephalic, atraumatic, anicteric. No thrush. NECK: Supple. LUNGS: Clear. HEART: S1, S2. ABDOMEN: Soft, obese. Bowel sounds present, nontender, nondistended. GENITOURINARY: No CVA tenderness. EXTREMITIES: No edema, no cyanosis. DERMATOLOGIC: Warm, dry. No generalized rash. NEUROLOGIC: Alert, oriented x 3, grossly nonfocal. PSYCHIATRIC: Cooperative, calm. LABORATORY DATA: WBC 7.6, hemoglobin 12.5, hematocrit 37.4, platelets 188. Sodium 134, potassium 3.7, chloride 99, bicarbonate 19, creatinine 0.8, glucose 146. LFTs: AST 79, ALT 90, alkaline phosphatase 94. Troponin normal. Albumin 3.2. WBC 1.4. Influenza screen is negative. COVID-19 PCR negative. MICRO: None at this time. DIAGNOSTIC: Chest x-ray as above. CT abdomen and pelvis as above. IMPRESSION: 1. Nausea, vomiting and diarrhea, likely viral gastroenteritis, resolved. 2. Low-grade fevers, likely from above, resolved. 3. Chest x-ray is clear. No evidence of pneumonia. COVID-19 and influenza screen negative. 4. Obesity. 5. History of MS. 6. Hypertension uncontrolled RECOMMENDATIONS: 1. From ID standpoint, patient can be discharged home. 2. Continue supportive care. 3. The patient is to follow up with a primary care in 7-10 days. 4. The patient will return to hospital if systemic symptoms worsen. 5. Discussed with RN. Thank you for allowing me to participate in this patient's care. JAMIR MCKEON MD DR: FREDY/haresh JOB#: [id number] / [id number] JADEN
--- NOTE | 2020-10-18 12:52 | PDOC ---
[employer] PROGRESS NOTE Date of Service DOS: DATE: 10/18/20 TIME: 12:45 Chief Complaint Chief Complaint Sepsis with fevers; appears secondary to viral gastroenteritis. Slight urinary tract infection and hypoxia with probable clinical pneumonia. The patient will be admitted. We will start IV antibiotics. Consult Infectious Disease. Consult Pulmonary. Home meds. Deep venous thrombosis prophylaxis. Full code. IV fluids. Trend labs. O2 per nasal cannula. Rule out COVID-19. History of Present Illness History of Present Illness The patient is a pleasant 39-year-old female who presented with nausea, vomiting and diarrhea. She came in by EMS to the Emergency Room. This has been occurring for 2 days. She has some associated dizziness, rated at 9/10. She tried increasing her home meds, but that did not work. Food makes it worse, sitting still makes it better. While in the ER, she was also hypertensive with pressures in the 200/100. She is tachycardic with a heart rate of 126. It appears to be septic. We are not exactly sure of the source of the sepsis, but clinically she seems to possibly have pneumonia. We are going to admit the patient and consult Infectious Disease. 10/18: Patient seen and evaluated. Charts, labs, and imaging reviewed. Currently she is improving. COVID-19 negative, afebrile. Discussed case with Dr. Mclean, we feel patient is clinically stable to be discharged home with self- care. Greater than 30 minutes spent managing discharge this patient. Vitals/I&O Vitals/I&O: Vital Signs Date Time Temp Pulse Resp B/P (MAP) Pulse Ox O2 Delivery O2 Flow Rate FiO2 10/18/20 11:00 98.1 80 17 125/68 (87) 97 Room Air 98.1 10/17/20 19:13 2.0 I & O 10/17/20 10/17/20 10/18/20 15:00 23:00 07:00 Intake Total 2050 ml 200 ml 500 ml Balance 2050 ml 200 ml 500 ml Physical Exam General: Alert, No acute distress Heart: Regular rate Lungs: Clear, Other Abdomen: Soft, No tenderness Extremities: No clubbing, No cyanosis Skin: No rashes, No breakdown Labs Labs: Laboratory Tests Test 10/17/20 13:06 10/17/20 13:40 10/17/20 13:57 10/17/20 14:13 White Blood Count 7.6 x10^3/uL (4.0-11.0) Red Blood Count 4.73 x10^6/uL (3.50-5.40) Hemoglobin 12.5 g/dL (12.0-15.5) Hematocrit 37.4 % (36.0-47.0) Mean Corpuscular Volume 79 fL (79-100) Mean Corpuscular Hemoglobin 27 pg (25-35) Mean Corpuscular Hemoglobin Concent 33 g/dL (31-37) Red Cell Distribution Width 14.7 % (11.5-14.5) Platelet Count 188 x10^3/uL (140-400) Neutrophils (%) (Auto) 95 % (31-73) Lymphocytes (%) (Auto) 3 % (24-48) Monocytes (%) (Auto) 2 % (0-9) Eosinophils (%) (Auto) 0 % (0-3) Basophils (%) (Auto) 0 % (0-3) Neutrophils # (Auto) 7.2 x10^3/uL (1.8-7.7) Lymphocytes # (Auto) 0.3 x10^3/uL (1.0-4.8) Monocytes # (Auto) 0.1 x10^3/uL (0.0-1.1) Eosinophils # (Auto) 0.0 x10^3/uL (0.0-0.7) Basophils # (Auto) 0.0 x10^3/uL (0.0-0.2) Segmented Neutrophils % 90 % (35-66) Band Neutrophils % 6 % (0-9) Lymphocytes % 3 % (24-48) Monocytes % 1 % (0-10) Platelet Estimate Adequate (ADEQUATE) Prothrombin Time 13.3 SEC (11.7-14.0) Prothromb Time International Ratio 1.1 (0.8-1.1) Sodium Level 134 mmol/L (136-145) Potassium Level 3.7 mmol/L (3.5-5.1) Chloride Level 99 mmol/L (98-107) Carbon Dioxide Level 19 mmol/L (21-32) Anion Gap 16 (6-14) Blood Urea Nitrogen 13 mg/dL (7-20) Creatinine 0.8 mg/dL (0.6-1.0) Estimated GFR (Cockcroft-Gault) 79.4 BUN/Creatinine Ratio 16 (6-20) Glucose Level 146 mg/dL (70-99) Lactic Acid Level 2.6 mmol/L (0.4-2.0) Calcium Level 8.2 mg/dL (8.5-10.1) Total Bilirubin 0.7 mg/dL (0.2-1.0) Aspartate Amino Transf (AST/SGOT) 79 U/L (15-37) Alanine Aminotransferase (ALT/SGPT) 90 U/L (14-59) Alkaline Phosphatase 94 U/L (46-116) Troponin I Quantitative < 0.017 ng/mL (0.000-0.055) NI-Qor-O-Type Natriuretic Peptide 63 pg/mL (0-124) Total Protein 7.6 g/dL (6.4-8.2) Albumin 3.2 g/dL (3.4-5.0) Albumin/Globulin Ratio 0.7 (1.0-1.7) Lipase 93 U/L (73-393) Acetone Level Neg (NEG) O2 Saturation 91 % (92-99) Arterial Blood pH 7.42 (7.35-7.45) Arterial Blood pCO2 at Patient Temp 32 mmHg (35-46) Arterial Blood pO2 at Patient Temp 62 mmHg (75-108) Arterial Blood HCO3 20 mmol/L (21-28) Arterial Blood Base Excess -4 mmol/L (-3-3) Oxyhemoglobin 90.5 % Methemoglobin 0.6 % (0.0-1.9) Carbon Monoxide, Quantitative 0.0 % (0.0-1.9) FiO2 21 Coronavirus (PCR) Not detected (Not Detected) Urine Collection Type Void Urine Color Yellow Urine Clarity Clear Urine pH 5.5 (<5.0-8.0) Urine Specific [place] 1.025 (1.000-1.030) Urine Protein 100 mg/dL (NEG-TRACE) Urine Glucose (UA) Negative mg/dL (NEG) Urine Ketones (Stick) 40 mg/dL (NEG) Urine Blood Negative (NEG) Urine Nitrite Negative (NEG) Urine Bilirubin Negative (NEG) Urine Urobilinogen Dipstick 1.0 mg/dL (0.2 mg/dL) Urine Leukocyte Esterase Trace (NEG) Urine RBC Rare /HPF (0-2) Urine WBC 1-4 /HPF (0-4) Urine Squamous Epithelial Cells Many /LPF Urine Bacteria Moderate /HPF (0-FEW) Urine Mucus Marked /LPF Urine Test Negative (NEG) Test 10/17/20 16:45 10/17/20 21:57 10/18/20 08:26 10/18/20 11:21 Lactic Acid Level 2.1 mmol/L (0.4-2.0) Influenza Type A Antigen Negative (NEGATIVE) Influenza Type B Antigen Negative (NEGATIVE) Glucose (Fingerstick) 222 mg/dL (70-99) 172 mg/dL (70-99) 144 mg/dL (70-99) Assessment and Plan Assessmemt and Plan Problems Medical Problems: (1) Hypoxia Status: Acute (2) Sepsis Status: Acute Comment Review of Relevant I have reviewed the following items pretty (where applicable) has been applied. Medications: Current Medications Medications (Trade) Dose Ordered Sig/Bryan Route PRN Reason Start Time Stop Time Status Last Admin Dose Admin Methylprednisolone Sodium Succinate (SOLU-Medrol 125MG VIAL) 125 mg 1X ONCE IV 10/17/20 13:15 10/17/20 13:17 DC 10/17/20 13:36 Fentanyl Citrate (Fentanyl 2ml Vial) 50 mcg 1X ONCE IVP 10/17/20 13:15 10/17/20 13:17 DC 10/17/20 13:37 Albuterol Sulfate (Ventolin Hfa) 1 puff 1X ONCE INH 10/17/20 13:30 10/17/20 13:31 DC 10/17/20 13:42 Ondansetron HCl (Zofran) 4 mg 1X ONCE IVP 10/17/20 13:15 10/17/20 13:17 DC 10/17/20 13:36 Sodium Chloride 1,000 ml @ 1,000 mls/hr 1X ONCE IV 10/17/20 13:15 10/17/20 14:14 DC 10/17/20 13:36 Piperacillin Sod/ Tazobactam Sod 3.375 gm/Sodium Chloride 50 ml @ 100 mls/hr 1X ONCE IV 10/17/20 13:15 10/17/20 13:44 DC 10/17/20 13:37 Acetaminophen (Tylenol) 650 mg 1X ONCE PO 10/17/20 13:15 10/17/20 13:24 DC 10/17/20 13:52 Sodium Chloride 1,000 ml @ 1,000 mls/hr 1X ONCE IV 10/17/20 13:15 10/17/20 14:14 DC 10/17/20 13:53 Iohexol (Omnipaque 300 Mg/ml) 75 ml 1X ONCE IV 10/17/20 14:30 10/17/20 14:31 DC 10/17/20 15:00 Acetaminophen (Tylenol) 650 mg PRN Q6HRS PRN PO MILD PAIN / TEMP > 100.3'F 10/18/20 09:15 10/18/20 09:11 Famotidine (Pepcid Vial) 20 mg BID IVP 10/18/20 11:00 10/18/20 11:05 Justifications for Admission Other Justification RAJWINDER WHITTINGTON MD Oct 18, 2020 12:52
--- NOTE | 2020-10-18 12:55 | PDOC3 ---
Discharge Summary Visit Information Date of Admission: Oct 17, 2020 Date of Discharge: Oct 18, 2020 Final Diagnosis Problems Medical Problems: (1) Hypoxia Status: Acute (2) Sepsis Status: Acute Brief Hospital Course Allergies Allergies Coded Allergies Type Severity Reaction Last Updated Verified No Known Drug Allergies 07/14/17 No Vital Signs Vital Signs Date Time Temp Pulse Resp B/P (MAP) Pulse Ox O2 Delivery O2 Flow Rate FiO2 10/18/20 11:00 98.1 80 17 125/68 (87) 97 Room Air 98.1 10/17/20 19:13 2.0 Lab Results Laboratory Tests Test 10/17/20 13:06 10/17/20 13:40 10/17/20 13:57 10/17/20 14:13 White Blood Count 7.6 x10^3/uL (4.0-11.0) Red Blood Count 4.73 x10^6/uL (3.50-5.40) Hemoglobin 12.5 g/dL (12.0-15.5) Hematocrit 37.4 % (36.0-47.0) Mean Corpuscular Volume 79 fL (79-100) Mean Corpuscular Hemoglobin 27 pg (25-35) Mean Corpuscular Hemoglobin Concent 33 g/dL (31-37) Red Cell Distribution Width 14.7 % (11.5-14.5) Platelet Count 188 x10^3/uL (140-400) Neutrophils (%) (Auto) 95 % (31-73) Lymphocytes (%) (Auto) 3 % (24-48) Monocytes (%) (Auto) 2 % (0-9) Eosinophils (%) (Auto) 0 % (0-3) Basophils (%) (Auto) 0 % (0-3) Neutrophils # (Auto) 7.2 x10^3/uL (1.8-7.7) Lymphocytes # (Auto) 0.3 x10^3/uL (1.0-4.8) Monocytes # (Auto) 0.1 x10^3/uL (0.0-1.1) Eosinophils # (Auto) 0.0 x10^3/uL (0.0-0.7) Basophils # (Auto) 0.0 x10^3/uL (0.0-0.2) Segmented Neutrophils % 90 % (35-66) Band Neutrophils % 6 % (0-9) Lymphocytes % 3 % (24-48) Monocytes % 1 % (0-10) Platelet Estimate Adequate (ADEQUATE) Prothrombin Time 13.3 SEC (11.7-14.0) Prothromb Time International Ratio 1.1 (0.8-1.1) Sodium Level 134 mmol/L (136-145) Potassium Level 3.7 mmol/L (3.5-5.1) Chloride Level 99 mmol/L (98-107) Carbon Dioxide Level 19 mmol/L (21-32) Anion Gap 16 (6-14) Blood Urea Nitrogen 13 mg/dL (7-20) Creatinine 0.8 mg/dL (0.6-1.0) Estimated GFR (Cockcroft-Gault) 79.4 BUN/Creatinine Ratio 16 (6-20) Glucose Level 146 mg/dL (70-99) Lactic Acid Level 2.6 mmol/L (0.4-2.0) Calcium Level 8.2 mg/dL (8.5-10.1) Total Bilirubin 0.7 mg/dL (0.2-1.0) Aspartate Amino Transf (AST/SGOT) 79 U/L (15-37) Alanine Aminotransferase (ALT/SGPT) 90 U/L (14-59) Alkaline Phosphatase 94 U/L (46-116) Troponin I Quantitative < 0.017 ng/mL (0.000-0.055) YL-Mms-I-Type Natriuretic Peptide 63 pg/mL (0-124) Total Protein 7.6 g/dL (6.4-8.2) Albumin 3.2 g/dL (3.4-5.0) Albumin/Globulin Ratio 0.7 (1.0-1.7) Lipase 93 U/L (73-393) Acetone Level Neg (NEG) O2 Saturation 91 % (92-99) Arterial Blood pH 7.42 (7.35-7.45) Arterial Blood pCO2 at Patient Temp 32 mmHg (35-46) Arterial Blood pO2 at Patient Temp 62 mmHg (75-108) Arterial Blood HCO3 20 mmol/L (21-28) Arterial Blood Base Excess -4 mmol/L (-3-3) Oxyhemoglobin 90.5 % Methemoglobin 0.6 % (0.0-1.9) Carbon Monoxide, Quantitative 0.0 % (0.0-1.9) FiO2 21 Coronavirus (PCR) Not detected (Not Detected) Urine Collection Type Void Urine Color Yellow Urine Clarity Clear Urine pH 5.5 (<5.0-8.0) Urine Specific [place] 1.025 (1.000-1.030) Urine Protein 100 mg/dL (NEG-TRACE) Urine Glucose (UA) Negative mg/dL (NEG) Urine Ketones (Stick) 40 mg/dL (NEG) Urine Blood Negative (NEG) Urine Nitrite Negative (NEG) Urine Bilirubin Negative (NEG) Urine Urobilinogen Dipstick 1.0 mg/dL (0.2 mg/dL) Urine Leukocyte Esterase Trace (NEG) Urine RBC Rare /HPF (0-2) Urine WBC 1-4 /HPF (0-4) Urine Squamous Epithelial Cells Many /LPF Urine Bacteria Moderate /HPF (0-FEW) Urine Mucus Marked /LPF Urine Test Negative (NEG) Test 10/17/20 16:45 10/17/20 21:57 10/18/20 08:26 10/18/20 11:21 Lactic Acid Level 2.1 mmol/L (0.4-2.0) Influenza Type A Antigen Negative (NEGATIVE) Influenza Type B Antigen Negative (NEGATIVE) Glucose (Fingerstick) 222 mg/dL (70-99) 172 mg/dL (70-99) 144 mg/dL (70-99) Laboratory Tests Test 10/17/20 13:06 10/17/20 13:40 10/17/20 13:57 10/17/20 14:13 White Blood Count 7.6 x10^3/uL (4.0-11.0) Red Blood Count 4.73 x10^6/uL (3.50-5.40) Hemoglobin 12.5 g/dL (12.0-15.5) Hematocrit 37.4 % (36.0-47.0) Mean Corpuscular Volume 79 fL (79-100) Mean Corpuscular Hemoglobin 27 pg (25-35) Mean Corpuscular Hemoglobin Concent 33 g/dL (31-37) Red Cell Distribution Width 14.7 % (11.5-14.5) Platelet Count 188 x10^3/uL (140-400) Neutrophils (%) (Auto) 95 % (31-73) Lymphocytes (%) (Auto) 3 % (24-48) Monocytes (%) (Auto) 2 % (0-9) Eosinophils (%) (Auto) 0 % (0-3) Basophils (%) (Auto) 0 % (0-3) Neutrophils # (Auto) 7.2 x10^3/uL (1.8-7.7) Lymphocytes # (Auto) 0.3 x10^3/uL (1.0-4.8) Monocytes # (Auto) 0.1 x10^3/uL (0.0-1.1) Eosinophils # (Auto) 0.0 x10^3/uL (0.0-0.7) Basophils # (Auto) 0.0 x10^3/uL (0.0-0.2) Segmented Neutrophils % 90 % (35-66) Band Neutrophils % 6 % (0-9) Lymphocytes % 3 % (24-48) Monocytes % 1 % (0-10) Platelet Estimate Adequate (ADEQUATE) Prothrombin Time 13.3 SEC (11.7-14.0) Prothromb Time International Ratio 1.1 (0.8-1.1) Sodium Level 134 mmol/L (136-145) Potassium Level 3.7 mmol/L (3.5-5.1) Chloride Level 99 mmol/L (98-107) Carbon Dioxide Level 19 mmol/L (21-32) Anion Gap 16 (6-14) Blood Urea Nitrogen 13 mg/dL (7-20) Creatinine 0.8 mg/dL (0.6-1.0) Estimated GFR (Cockcroft-Gault) 79.4 BUN/Creatinine Ratio 16 (6-20) Glucose Level 146 mg/dL (70-99) Lactic Acid Level 2.6 mmol/L (0.4-2.0) Calcium Level 8.2 mg/dL (8.5-10.1) Total Bilirubin 0.7 mg/dL (0.2-1.0) Aspartate Amino Transf (AST/SGOT) 79 U/L (15-37) Alanine Aminotransferase (ALT/SGPT) 90 U/L (14-59) Alkaline Phosphatase 94 U/L (46-116) Troponin I Quantitative < 0.017 ng/mL (0.000-0.055) LO-Lvc-E-Type Natriuretic Peptide 63 pg/mL (0-124) Total Protein 7.6 g/dL (6.4-8.2) Albumin 3.2 g/dL (3.4-5.0) Albumin/Globulin Ratio 0.7 (1.0-1.7) Lipase 93 U/L (73-393) Acetone Level Neg (NEG) O2 Saturation 91 % (92-99) Arterial Blood pH 7.42 (7.35-7.45) Arterial Blood pCO2 at Patient Temp 32 mmHg (35-46) Arterial Blood pO2 at Patient Temp 62 mmHg (75-108) Arterial Blood HCO3 20 mmol/L (21-28) Arterial Blood Base Excess -4 mmol/L (-3-3) Oxyhemoglobin 90.5 % Methemoglobin 0.6 % (0.0-1.9) Carbon Monoxide, Quantitative 0.0 % (0.0-1.9) FiO2 21 Coronavirus (PCR) Not detected (Not Detected) Urine Collection Type Void Urine Color Yellow Urine Clarity Clear Urine pH 5.5 (<5.0-8.0) Urine Specific [place] 1.025 (1.000-1.030) Urine Protein 100 mg/dL (NEG-TRACE) Urine Glucose (UA) Negative mg/dL (NEG) Urine Ketones (Stick) 40 mg/dL (NEG) Urine Blood Negative (NEG) Urine Nitrite Negative (NEG) Urine Bilirubin Negative (NEG) Urine Urobilinogen Dipstick 1.0 mg/dL (0.2 mg/dL) Urine Leukocyte Esterase Trace (NEG) Urine RBC Rare /HPF (0-2) Urine WBC 1-4 /HPF (0-4) Urine Squamous Epithelial Cells Many /LPF Urine Bacteria Moderate /HPF (0-FEW) Urine Mucus Marked /LPF Urine Test Negative (NEG) Test 10/17/20 16:45 10/17/20 21:57 10/18/20 08:26 10/18/20 11:21 Lactic Acid Level 2.1 mmol/L (0.4-2.0) Influenza Type A Antigen Negative (NEGATIVE) Influenza Type B Antigen Negative (NEGATIVE) Glucose (Fingerstick) 222 mg/dL (70-99) 172 mg/dL (70-99) 144 mg/dL (70-99) Brief Hospital Course Ms. Luciano is a 39 old female who presented with sepsis, nausea, vomiting, diarrhea. She received broad-spectrum antibiotics and IV fluids. Consultation was placed to pulmonology and ID. Discussed case with pulmonology, we feel that patient symptoms are likely due to viral gastroenteritis. Her COVID-19 was negative. She denies any further nausea, vomiting, or diarrhea prior to discharge. She was stable for discharge home with self-care. Discharge Information Condition at Discharge: Improved Follow Up: Weeks Disposition/Orders: D/C to Home Scheduled Amlodipine Besylate (Amlodipine Besylate) 5 Mg Tablet, 5 MG PO DAILY, (Reported) Entered as Reported by: LINDA CAICEDO on 07/11/17 105 Losartan Potassium (Losartan Potassium) 100 Mg Tablet, 100 MG PO DAILY, (Reported) Entered as Reported by: LINDA CAICEDO on 07/11/17 105 Pantoprazole Sodium (Pantoprazole Sodium ) 40 Mg Tablet.dr, 1 TAB PO BID, #60 Ref 1 Prescribed by: ESTEFANY GOULD on 07/14/17 1501 [insulin] , 24 UNITS SQ HS, (Reported) Entered as Reported by: CLAUDIA ADAMS on 10/18/20751 Last Action: New Order on 10/18/20751 by CLAUDIA ADAMS Scheduled PRN Albuterol Sulfate (Albuterol Sulfate Conc Neb Soln) 2.5 Mg/0.5 Ml Vial.neb, 1 VIAL NEB PRN BID PRN for WHEEZING, #120 Ref 5 (Reported) Entered as Reported by: TONY LUNDY on 07/10/172254 Albuterol Sulfate (Ventolin Hfa Inhaler) 18 Gm Hfa.aer.ad, 2 PUFF INH PRN Q2- 4HRS PRN for SHORTNESS OF BREATH, Ref 0 (Reported) Entered as Reported by: TONY LUNDY on 07/10/172254 Alprazolam (Alprazolam) 0.5 Mg Tablet, 0.5 MG PO PRN BID PRN for ANXIETY / AGITATION, Ref 0 (Reported) Entered as Reported by: TONY LUNDY on 07/10/172254 Budesonide/Formoterol Fumarate (Symbicort 160-4.5 Mcg Inhaler) 10.2 Gm Hfa.aer.ad, 2 PUFF IH PRN BID PRN for SHORTNESS OF BREATH, #10.6 Ref 3 (Reported) Entered as Reported by: TONY LUNDY on 07/10/172254 Hydrocodone Bit/Acetaminophen (Hydrocodone-Apap 5-325 ) 1 Each Tablet, 1 TAB PO PRN Q6HRS PRN for PAIN, #15 Ref 0 Be careful as this medication may cause you to be drowsy or tired. Do not drive on this medication. Prescribed by: MARGARET CRANE on 04/13/17 1820 Justicifation of Admission Dx: Justifications for Admission: Justification of Admission Dx: Yes (Sepsis) RAJWINDER WHITTINGTON MD Oct 18, 2020 12:55
--- NOTE | 2020-10-18 13:37 | NUR ---
Discharge Note: PT DISCHARGED HOME WITH SELF CARE. PT LEFT FACILITY VIA PRIVATE VEHICLE WITH AT 1335. PT STABLE AND ALERT UPON DISCHARGE. PT PIV REMOVED FROM R FA WITHOUT COMPLICATIONS, BANDAGE APPLIED. PT EDUCATED ABOUT DISCHARGE INSTRUCTIONS, DISCHARGE MEDICATIONS, AND FOLLOW-UP INSTRUCTIONS. PT VOICED NO CONCERNS AT THIS TIME. PT WAS INFORMED SHE WAS COVID NEGATIVE. PT LEFT WITH ALL PERSONAL BELONGINGS. EDGARDO MORA[address] [place] [address] Discharge instructions and discharge home medications reviewed with Patient and a copy given. All questions have been answered and understanding verbalized.
--- NOTE | 2020-10-20 10:18 | PDOC ---
Infectious Disease Note Subjective: Subjective Informed by nikhil Fine regarding positive bc pt is been dc home on 10/18 RUN DATE: 10/20/20 [facility] LAB *LIVE* PAGE 1 RUN TIME: 952 Specimen Inquiry PATIENT: MORGANEDGARDO LIN ACCT: [id number] LOC: [address] [place] [address] U: [id number] AGE/SX: 39/F ROOM: [facility] RE10/17/[address]: CHRISTIAN PEREZ III, DO : 1980 BED: 1 DIS: 10/18/20 STATUS: DIS IN TLOC: SPEC #: [id number] [place]: 10/17/20 STATUS: COMP REQ #: [id number] RECD: 10/18/20-[address]: CHRISTIAN PEREZ III, DO SOURCE: BLOOD ENTR: 10/18/20-805 [facility] DR: JUSTEN MCKEON MD SPDESC: EVARISTO WILCOX AMAN U MD PROPECK, SCOTT S MD ORDERED: BCULT Procedure Result BLOOD CULTURE Final GRAM POSITIVE COCCI IN CHAINS, SUGGESTIVE OF STREP, IN 1 OF 4 BOTTLES, TWO SETS DRAWN. CALLED Darryl JENSEN ON AT 9:25 ON 10/20/20 [facility] PATIENT WAS DISCHARGED TO HOME. CALLED TO TRAVIS CAMEJO RN ON AT 9:45 ON 10/20/20 WHO WILL CONTACT THE PHYSICIAN. SPECIMEN WILL BE SENT TO [facility] FOR FURTHER WORKUP. Medications: Inpatient Meds: Medications reviewed. Objective: Assessment: Bacteremia 1/4 bottles strep today pt is dc home on 10/18 Plan: Plan of Care I called pt today, Pt is not available left message to call us here or go to ED for further evaluation and treatment JAMIR MCKEON MD Oct 20, 2020 10:18
== END 2020-10-18 13:40 | disposition home or self-care (01) | DRG 872 ==
LOC: ER 12:54 → ED HOLD 16:00 → ER 17:02 → 6 SOUTH 20:10
PROVIDERS: ADMIT Internal Medicine; ATTEND Internal Medicine
DX: A41.9 Sepsis, unspecified organism (principal); Z68.42 Body mass index [BMI] 45.0-49.9, adult; N39.0 Urinary tract infection, site not specified; E11.9 Type 2 diabetes mellitus without complications; I10 Essential (primary) hypertension; Z20.822 Contact with and (suspected) exposure to COVID-19; K76.0 Fatty (change of) liver, not elsewhere classified; K21.9 Gastro-esophageal reflux disease without esophagitis; D72.810 Lymphocytopenia; R09.02 Hypoxemia; A08.4 Viral intestinal infection, unspecified; E66.9 Obesity, unspecified; J45.909 Unspecified asthma, uncomplicated; Z87.891 Personal history of nicotine dependence; Z82.49 Family history of ischemic heart disease and other diseases of the circulatory system; Z90.49 Acquired absence of other specified parts of digestive tract; Z99.3 Dependence on wheelchair; Z87.440 Personal history of urinary (tract) infections; Z87.01 Personal history of pneumonia (recurrent)
CPT/HCPCS: 36415; 71045; 74177; 80053; 81001; 81025; 82010; 82805; 82962; 83605; 83690; 83880; 84484; 85007; 85025; 85610; 87040; 87086; 87205; 87804; 96365; 96375; 99285; J2405; J2543; J2930; J3010; J3490; J7030; Q9967; U0003; G0378

== ENCOUNTER 2021-01-26 15:49 | Emergency (ER) | payer BC, MEDICAID ==
[~2021-01-26] VITALS: Ht 154.9 cm; Wt 115.5 kg
[~2021-01-26 15:49] MED LIST changes: +insulin SQ
[2021-01-26 18:13] LABS: BILIRUBIN,URINE NEGATIVE (NEG); CLARITY,URINE CLEAR; COLOR,URINE YELLOW; NITRITE,URINE NEGATIVE (NEG); PH,URINE 5.5 (<5.0-8.0); PROTEIN,URINE NEGATIVE (NEG-TRACE); UROBILINOGEN,URINE 0.2 mg/dL (0.2 mg/dL)
[2021-01-26 18:29] LABS: BACTERIA,URINE FEW /HPF (0-FEW); RBC,URINE 0 /HPF (0-2)
[2021-01-26] MEDS ORDERED: FAMOTIDINE 20 MG/2 ML VIAL IVP ONE (18:30)
[2021-01-26] MEDS ORDERED: IV NORMAL SALINE 1000ML BAG 1,000 ML IV ONE (18:30)
[2021-01-26] MEDS ORDERED: fentaNYL PF VIAL 100 MCG/2 ML VIAL IV ONE (18:30)
[2021-01-26] MEDS ORDERED: ONDANSETRON PF 4 MG/2 ML VIAL. IV ONE (18:30)
[2021-01-26 18:49] LABS: BASO # 0.1 x10^3/uL (0.0-0.2); BASO % 1 % (0-3); EOS # 0.1 x10^3/uL (0.0-0.7); EOS % 1 % (0-3); HEMATOCRIT 35.4 % (36.0-47.0); HEMOGLOBIN 11.8 g/dL (12.0-15.5); LYMPH # 1.4 x10^3/uL (1.0-4.8); LYMPH % 18 % (24-48); MEAN CORPUSCULAR HEMOGLOBIN 26 pg (25-35); MEAN CORPUSCULAR HGB CONC 33 g/dL (31-37); MEAN CORPUSCULAR VOLUME 78 fL (79-100); MONO # 0.4 x10^3/uL (0.0-1.1); MONO % 5 % (0-9); NEUT # 5.8 x10^3/uL (1.8-7.7); NEUT % 75 % (31-73); PLATELET COUNT 245 x10^3/uL (140-400); RED BLOOD COUNT 4.54 x10^6/uL (3.50-5.40); RED CELL DISTRIBUTION WIDTH 15.4 % (11.5-14.5); WHITE BLOOD COUNT 7.7 x10^3/uL (4.0-11.0)
[2021-01-26 18:54] LABS: CALCIUM 9.2 mg/dL (8.5-10.1); CREATININE 0.7 mg/dL (0.6-1.0); GFR 92.2; POTASSIUM 4.6 mmol/L (3.5-5.1)
[2021-01-26 18:59] LABS: ALBUMIN 3.6 g/dL (3.4-5.0); ALBUMIN/GLOBULIN RATIO 0.8 (1.0-1.7); MAGNESIUM 1.6 mg/dL (1.8-2.4); TOTAL BILIRUBIN 0.4 mg/dL (0.2-1.0); TOTAL PROTEIN 7.9 g/dL (6.4-8.2)
[2021-01-26] MEDS ORDERED: CONTRAST GIVEN. MC PRN (19:15)
[2021-01-26] MEDS ORDERED: IOHEXOL 300 MG/ML 100ML VIAL. IV ONE (19:15)
--- NOTE | 2021-01-26 19:23 | ED.ADGEN ---
Past Medical History Past Medical History: Asthma, Diabetes-Type II, Hypertension, Kidney Infection Additional Past Medical Histor: MS (has been in wheelchair for past 12 years) Past Surgical History: Appendectomy Smoking Status: Never Smoker Alcohol Use: None Drug Use: None General Adult EDM: Chief Complaint: ABDOMINAL PAIN HPI: HPI: Patient is a 40 year old female who presents to the emergency department with complaints of nausea, vomiting, left flank, right upper quadrant, and epigastric abdominal pain for the last 4 days. She states that she is currently taking Ba ctrim for a urinary tract infection. She states that her dysuria has improved but she is concerned because at times she has had a hard time keeping even the medication down. She denies any fever, cough, body aches, rash, headache, sore throat, chest pain, shortness of breath, diarrhea, or constipation. Patient denies any blood in her urine. She reports that she has vomited at least 5 times today. She currently rates the pain a 7 out of 10 on the pain scale, she denies any alleviating factors. Patient reports that her abdominal pain increases with vomiting. Review of Systems: Review of Systems: Complete ROS is negative unless otherwise noted in HPI. Current Medications: Current Medications Medications (Trade) Dose Ordered Sig/Bryan Start Time Stop Time Status Last Admin Dose Admin Diphenhydramine HCl (Benadryl) 25 mg 1X ONCE 01/26/21 21:00 01/26/21 21:01 DC Famotidine (Pepcid Vial) 20 mg 1X ONCE 01/26/21 18:30 01/26/21 18:31 DC 01/26/21 19:09 20 MG Fentanyl Citrate (Fentanyl 2ml Vial) 50 mcg 1X ONCE 01/26/21 18:30 01/26/21 18:31 DC 01/26/21 19:10 50 MCG Info (CONTRAST GIVEN -- Rx MONITORING) 1 each PRN DAILY PRN 01/26/21 19:15 01/26/21 22:28 DC Iohexol (Omnipaque 300 Mg/ml) 75 ml 1X ONCE 01/26/21 19:15 01/26/21 19:16 DC 01/26/21 20:14 75 ML Labetalol HCl (Normodyne Iv Push) 10 mg 1X ONCE 01/26/21 22:00 01/26/21 22:01 DC 01/26/21 22:13 10 MG Magnesium Oxide (Magnesium Oxide) 400 mg 1X ONCE 01/26/21 21:45 01/26/21 21:46 DC Ondansetron HCl (Zofran) 4 mg 1X ONCE 01/26/21 18:30 01/26/21 18:31 DC 01/26/21 19:09 4 MG Sodium Chloride 1,000 ml @ 1,000 mls/hr 1X ONCE 01/26/21 18:30 01/26/21 19:29 DC 01/26/21 19:09 1,000 MLS/HR Allergies: Allergies: Allergies Coded Allergies Type Severity Reaction Last Updated Verified No Known Drug Allergies 07/14/17 No Physical Exam: PE: See Above Constitutional: Well developed, well nourished, no acute distress, non-toxic appearance, obese. [] HENT: Normocephalic, atraumatic, bilateral external ears normal, nose normal. [] Eyes: PERRLA, EOMI, conjunctiva normal, no discharge. [] Neck: Normal range of motion, no stridor. [] Cardiovascular:Heart rate regular rhythm Lungs & Thorax: Respirations even and unlabored, no retractions, no respiratory distress Abdomen: soft, diffuse upper abdominal tenderness, no rebound tenderness, no guarding, no palpable mass Back: No CVA tenderness Skin: Warm, dry, no erythema, no rash. [] Extremities: No cyanosis, ROM intact, no edema. [] Neurologic: Alert and oriented X 3, no focal deficits noted. [] Psychologic: Affect normal, judgement normal, mood normal. [] Current Patient Data: Labs: Laboratory Tests Test 01/26/21 17:41 01/26/21 17:48 01/26/21 18:30 Glucose (Fingerstick) 92 mg/dL (70-99) Urine Collection Type Unknown Urine Color Yellow Urine Clarity Clear Urine pH 5.5 (<5.0-8.0) Urine Specific [place] 1.010 (1.000-1.030) Urine Protein Negative mg/dL (NEG-TRACE) Urine Glucose (UA) Negative mg/dL (NEG) Urine Ketones (Stick) Negative mg/dL (NEG) Urine Blood Negative (NEG) Urine Nitrite Negative (NEG) Urine Bilirubin Negative (NEG) Urine Urobilinogen Dipstick 0.2 mg/dL (0.2 mg/dL) Urine Leukocyte Esterase Small (NEG) Urine RBC 0 /HPF (0-2) Urine WBC 11-20 /HPF (0-4) Urine Squamous Epithelial Cells Many /LPF Urine Bacteria Few /HPF (0-FEW) Urine Mucus Slight /LPF White Blood Count 7.7 x10^3/uL (4.0-11.0) Red Blood Count 4.54 x10^6/uL (3.50-5.40) Hemoglobin 11.8 g/dL (12.0-15.5) L Hematocrit 35.4 % (36.0-47.0) L Mean Corpuscular Volume 78 fL (79-100) L Mean Corpuscular Hemoglobin 26 pg (25-35) Mean Corpuscular Hemoglobin Concent 33 g/dL (31-37) Red Cell Distribution Width 15.4 % (11.5-14.5) H Platelet Count 245 x10^3/uL (140-400) Neutrophils (%) (Auto) 75 % (31-73) H Lymphocytes (%) (Auto) 18 % (24-48) L Monocytes (%) (Auto) 5 % (0-9) Eosinophils (%) (Auto) 1 % (0-3) Basophils (%) (Auto) 1 % (0-3) Neutrophils # (Auto) 5.8 x10^3/uL (1.8-7.7) Lymphocytes # (Auto) 1.4 x10^3/uL (1.0-4.8) Monocytes # (Auto) 0.4 x10^3/uL (0.0-1.1) Eosinophils # (Auto) 0.1 x10^3/uL (0.0-0.7) Basophils # (Auto) 0.1 x10^3/uL (0.0-0.2) Sodium Level 135 mmol/L (136-145) L Potassium Level 4.6 mmol/L (3.5-5.1) Chloride Level 101 mmol/L (98-107) Carbon Dioxide Level 20 mmol/L (21-32) L Anion Gap 14 (6-14) Blood Urea Nitrogen 8 mg/dL (7-20) Creatinine 0.7 mg/dL (0.6-1.0) Estimated GFR (Cockcroft-Gault) 92.2 BUN/Creatinine Ratio 11 (6-20) Glucose Level 98 mg/dL (70-99) Calcium Level 9.2 mg/dL (8.5-10.1) Magnesium Level 1.6 mg/dL (1.8-2.4) L Total Bilirubin 0.4 mg/dL (0.2-1.0) Aspartate Amino Transferase (AST) 31 U/L (15-37) Alanine Aminotransferase (ALT) 48 U/L (14-59) Alkaline Phosphatase 93 U/L (46-116) Total Protein 7.9 g/dL (6.4-8.2) Albumin 3.6 g/dL (3.4-5.0) Albumin/Globulin Ratio 0.8 (1.0-1.7) L Lipase 101 U/L (73-393) Serum Test, Qualitative Negative (NEG) Laboratory Tests 01/26/21 18:30 Laboratory Tests 01/26/21 18:30 Vital Signs: Vital Signs Date Time Temp Pulse Resp B/P (MAP) Pulse Ox O2 Delivery O2 Flow Rate FiO2 01/26/21 22:13 96 217/140 01/26/21 20:35 100 Room Air 01/26/21 18:40 98.9 20 98.9 EKG: EKG: [] Heart Score: C/O Chest Pain: No Radiology/Procedures: Radiology/Procedures: PROCEDURE: CT ABD PELV W/ IV CONTRST ONLY CT abdomen pelvis with contrast CT abdomen pelvis with contrast. HISTORY: Left flank pain, abdominal pain, nausea and vomiting CT abdomen pelvis was done using 75 mL Omnipaque 300 contrast. Comparison is made with a study from October. Lung bases are clear. There is no effusion. There is diffuse fatty change in the liver. Patient's had a cholecystectomy. Spleen is normal in appearance. Adrenal glands are normal. Pancreas is unremarkable. There is no mass or hydronephrosis in the kidneys. There is no free air or ascites. Patient's had an appendectomy. There is no bowel obstruction. There is a small follicle in the left ovary. Uterus and right ovary are unremarkable. There is no free fluid in the pelvis. There is not evidence of a diverticulitis. IMPRESSION: 1. Diffuse hepatic steatosis. 2. No bowel obstruction. 3. No other acute finding noted in the abdomen or pelvis. Course & Med Decision Making: Course & Med Decision Making Pertinent Labs and Imaging studies reviewed. (See chart for details) 40-year-old female presents emergency department with multiple complaints. UA revealed 10-20 white blood cells however many squamous cells, and few bacteria encouraged patient to continue taking Bactrim as prescribed. CT of the abdomen pelvis was negative for any acute findings. CBC revealed a hemoglobin 11.8, hematocrit of 35.4 otherwise unremarkable; CMP revealed a sodium 135, carbon dioxide of 20, blood sugar was 98, magnesium was 1 .6. Patient was given 400 mg magnesium in the emergency department. Liver enzymes and lipase were not elevated. Patient was given Zofran, a liter of fluid, 20 mg of Pepcid, and 50 mcg of fentanyl IV. She reported feeling better after these medications, patient was tolerating p.o. fluids in the ER. Patient's blood pressure was elevated in the emergency department, she reported that she is supposed to change her clonidine patch and also take her nighttime blood pressure medication. Patient was given 10 mg of labetalol IV in the ER her blood pressure improved, I am instructed patient to take her blood pressure medication as prescribed when she gets home. Prescription was written for Zofran. Recommend clear liquids for 24 hours then advance diet as tolerated beginning with bland foods. Follow-up with primary care doctor next week, return to the ER if symptoms worsen or fever develops. Patient verbalized an understanding of home care, medications, follow-up, and return to ED instructions and was in agreement with the plan of care. [] Irma Disclaimer: Irma Disclaimer: This electronic medical record was generated, in whole or in part, using a voice recognition dictation system. Departure Departure Impression: Primary Impression: Nausea & vomiting Additional Impressions: Abdominal pain Hypertension Disposition: 01 HOME / SELF CARE / HOMELESS Condition: STABLE Referrals: EVARISTO WILCOX (PCP) Patient Instructions: Abdominal Pain (Nonspecific), Nausea and Vomiting, [id number] Additional Instructions: Fill prescriptions and use them as directed. Recommend clear fluids for the next 24 hours. Then you may advance to bland foods such as bananas, rice, applesauce, and dry toast. Follow-up with your primary care doctor in the next 1-2 days. Return to the emergency room if your symptoms worsen or if fever develops. Scripts Ondansetron (ONDANSETRON ODT) 4 Mg Tab.rapdis 1 TAB PO PRN Q6-8HRS PRN for NAUSEA/VOMITING for 3 Days, #10 TAB 0 Refills Prov: MISHA MOMIN FOLEY ARTIST 01/26/21 Problem Qualifiers Primary Impression: Nausea & vomiting Vomiting type: unspecified Vomiting Intractability: non-intractable Qualified Codes: R11.2 - Nausea with vomiting, unspecified Additional Impressions: Abdominal pain Abdominal location: generalized Qualified Codes: R10.84 - Generalized abdominal pain Hypertension Hypertension type: unspecified Qualified Codes: I10 - Essential (primary) hypertension MISHA MOMIN FOLEY ARTIST Jan 26, 2021 19:23
[2021-01-26 19:45] LABS: PREG TEST PT QUAL NEGATIVE (NEG)
--- NOTE | 2021-01-26 20:42 | RAD ---
CT abdomen pelvis with contrast CT abdomen pelvis with contrast. HISTORY: Left flank pain, abdominal pain, nausea and vomiting CT abdomen pelvis was done using 75 mL Omnipaque 300 contrast. Comparison is made with a study from [facility]. Lung bases are clear. There is no effusion. There is diffuse fatty change in the liver. Patient 's had a cholecystectomy. Spleen is normal in appearance. Adrenal glands are normal. Pancreas is unre markable. There is no mass or hydronephrosis in the kidneys. There is no free air or ascites. Patient 's had an appendectomy. There is no bowel obstruction. There is a small follicle in the left ovary. U terus and right ovary are unremarkable. There is no free fluid in the pelvis. There is not evidence o f a diverticulitis. IMPRESSION: 1. Diffuse hepatic steatosis. 2. No bowel obstruction. 3. No other acute finding noted in the abdomen or pelvis. PQRS Compliance Statement: One or more of the following individualized dose reduction techniques were utilized for this examinat ion: 1. Automated exposure control 2. Adjustment of the mA and/or kV according to patient size 3. Use of iterative reconstruction technique Electronically signed by: Lukasz Mccray MD (01/26/2021 8:39 PM) [facility]
[2021-01-26] MEDS ORDERED: diphenhydrAMINE 50 MG/ML VIAL IVP ONE (21:00)
[2021-01-26] MEDS: MAGNESIUM OXIDE 400 MG TABLET PO ONE ×2 (21:45→22:13)
[2021-01-26] MEDS ORDERED: LABETALOL 20 MG/4 ML DISP.SYRIN. IVP ONE (22:00)
[2021-01-26 22:13] VITALS: BP 217/140
[2021-01-26] MEDS ORDERED: ONDA4TAB12 PO (22:19)
== END 2021-01-26 22:25 | disposition home or self-care (01) ==
LOC: ER 15:49
DX: R11.2 Nausea with vomiting, unspecified (principal); R10.13 Epigastric pain; I10 Essential (primary) hypertension; E11.9 Type 2 diabetes mellitus without complications; J45.909 Unspecified asthma, uncomplicated; Z90.49 Acquired absence of other specified parts of digestive tract
CPT/HCPCS: 36415; 74177; 80053; 81001; 82962; 83690; 83735; 84703; 85025; 87086; 96361; 96374; 96375; 99285; J2405; J3010; J3490; J7030; Q9967

== ENCOUNTER 2021-01-31 05:20 | Emergency (ER) | payer BC, MEDICAID ==
[~2021-01-31] VITALS: Ht 154.9 cm; Wt 113.6 kg
[~2021-01-31 05:20] MED LIST changes: +ONDA4TAB12 PO
--- NOTE | 2021-01-31 05:42 | PHYS DOC ---
Past Medical History Past Medical History: Asthma, Diabetes-Type II, Hypertension, Kidney Infection Additional Past Medical Histor: MS (has been in wheelchair for past 12 years) (NELL BEASLEY DO) Past Surgical History: Appendectomy (NELL BEASLEY DO) Smoking Status: Never Smoker Alcohol Use: None Drug Use: None (NELL BEASLEY DO) General Adult EDM: Chief Complaint: NAUSEA/VOMITING/DIARRHEA HPI: HPI: Patient is a 40 year old female who was brought here by EMS from home due to nausea vomiting and hypertension. Patient has a history of MS, she has been wheelchair-bound, she woke up this morning feeling nauseous and vomited multipl e times. Her checked her blood pressure and it was really high. Patient has history of hypertension, she is on 2 different antihypertensive medication. Patient denies any chest pain, no abdominal pain, no cough or fever. Patient denied headache, she felt a little lightheaded. Patient was evaluated here 5 days ago due to nausea vomiting and abdominal pain. Her blood pressure was elevated at home. Patient was taken Bactrim DS at the time for UTI. (NELL BEASLEY DO) Review of Systems: Review of Systems: Constitutional: Denies fever or chills. [] Eyes: Denies change in visual acuity. [] HENT: Denies nasal congestion or sore throat. [] Respiratory: Denies cough or shortness of breath. [] Cardiovascular: Denies chest pain or edema. [] GI: Denies abdominal pain, positive for nausea vomiting, no diarrhea, no constipation : Denies dysuria. [] Musculoskeletal: Denies back pain or joint pain. [] Integument: Denies rash. [] Neurologic: Denies headache, focal weakness or sensory changes. Positive for feeling lightheaded. Endocrine: Denies polyuria or polydipsia. [] Lymphatic: Denies swollen glands. [] Psychiatric: Denies depression or anxiety. [] (NELL BEASLEY DO) Heart Score: C/O Chest Pain: N/A Risk Factors: Risk Factors: DM, Current or recent (<one month) smoker, HTN, HLP, family history of CAD, obesity. Risk Scores: Score 0 - 3: 2.5% MACE over next 6 weeks - Discharge Home Score 4 - 6: 20.3% MACE over next 6 weeks - Admit for Clinical Observation Score 7 - 10: 72.7% MACE over next 6 weeks - Early Invasive Strategies (NELL BEASLEY DO) Current Medications: Current Medications Medications (Trade) Dose Ordered Sig/Bryan Start Time Stop Time Status Last Admin Dose Admin Metoclopramide HCl (Reglan Vial) 10 mg 1X ONCE 01/31/21 05:45 01/31/21 05:46 Metoprolol Tartrate (Lopressor Vial) 5 mg 1X ONCE 01/31/21 05:45 01/31/21 05:46 Ondansetron HCl (Zofran) 4 mg 1X ONCE 01/31/21 05:45 01/31/21 05:46 UNV (NELL BEASLEY DO) Allergies: Allergies: Allergies Coded Allergies Type Severity Reaction Last Updated Verified iodine Allergy Intermediate 01/29/21 Yes (NELL BEASLEY DO) Physical Exam: PE: Constitutional: Well developed, well nourished, no acute distress, non-toxic appearance. [] HENT: Normocephalic, atraumatic, bilateral external ears normal, oropharynx moist, no oral exudates, nose normal. [] Eyes: PERRLA, EOMI, conjunctiva normal, no discharge. [] Neck: Normal range of motion, no tenderness, supple, no stridor. [] Cardiovascular: Sinus tachycardia, regular rhythm, no murmur [] Lungs & Thorax: Bilateral breath sounds clear to auscultation [] Abdomen: Bowel sounds normal, soft, no tenderness, no masses, no pulsatile masses. [] Skin: Warm, dry, no erythema, no rash. [] Back: No tenderness, no CVA tenderness. [] Extremities: No tenderness, no cyanosis, no clubbing, ROM intact, no edema. [] Neurologic: Alert and oriented X 3, normal motor function, normal sensory function, no focal deficits noted. [] Psychologic: Affect normal, judgement normal, appear to be anxious. (NELL BEASLEY DO) Current Patient Data: Labs: Current Medications Medications (Trade) Dose Ordered Sig/Bryan Route PRN Reason Start Time Stop Time Status Last Admin Dose Admin Metoclopramide HCl (Reglan Vial) 10 mg 1X ONCE IVP 01/31/21 05:45 01/31/21 05:46 DC Metoprolol Tartrate (Lopressor Vial) 5 mg 1X ONCE IVP 01/31/21 05:45 01/31/21 05:46 DC Ondansetron HCl (Zofran) 4 mg 1X ONCE IVP 01/31/21 05:45 01/31/21 05:46 DC 01/31/21 05:51 Lorazepam (Ativan Inj) 1 mg 1X ONCE IVP 01/31/21 05:45 01/31/21 05:46 DC 01/31/21 05:52 (NELL BEASLEY DO) EKG: EKG: [] (NELL BEASLEY DO) EKG: Sinus rhythm at 90 bpm, no axis deviation, normal intervals, no T wave inversions, no ST elevations or ST depressions ([facility]) Radiology/Procedures: Radiology/Procedures: [] (NELL BEASLEY DO) Radiology/Procedures: IMAGING REPORT Signed PATIENT: EDGARDO MORA JACCOUNT: [id number] : 1980 LOCATION: ER AGE: 40 SEX: F EXAM STATUS: REG ER ORD. PHYSICIAN: NELL BEASLEY DO REASON: DIZZINESS, HYPERTENSIVE NAUSEA, VOMITING PROCEDURE: CT HEAD WO CONTRAST CT HEAD/BRAIN WO Date: 01/31/2021 5:49 AM Clinical Indication: Reason: DIZZINESS, HYPERTENSIVE NAUSEA, VOMITING / Spl. Instructions: / History: Comparison: None. Technique: 5 mm axial tomographic images were obtained of the head without contrast. These were viewed on brain and bone windows. One or more of the following dose reduction techniques were utilized: Automated exposure control (AEC), Adjustment of mA and/or kV according to patient size, Use of iterative reconstruction technique such as ASiR, CT scan done according to ALARA and image gently/image wisely Findings: The brain parenchyma is normal in attenuation. No intra- or extra-axial mass or fluid collection. No acute hemorrhage. The ventricles are normal in size, shape, and morphology. The freeman-white matter junction is normal. The subarachnoid cisterns are patent. The visualized paranasal sinuses are normal. The visualized portions of the orbits and globes are normal. The mastoid air cells are clear. The fabric inspector topogram shows no lytic lesion or fracture. Impression: No acute intracranial process. Electronically signed by: Brandin Fuller MD (01/31/2021 6:24 AM) [facility] DICTATED and SIGNED BY: BRANDIN FULLER MD DATE: 01/31/21 [id number] (SELVIN VILLARREAL DO) Course & Med Decision Making: Course & Med Decision Making Pertinent Labs and Imaging studies reviewed. (See chart for details) Patient is a 40-year-old female who was brought here by EMS from home due to nausea and vomiting. Blood pressure was extremely high. Patient was given antinausea medication and antihypertensive medication in ER, her care was endorsed to the incoming physician at shift Dr. Villarreal. (NELL BEASLEY DO) Course & Med Decision Making Concern for uncontrolled hypertension with no end organ damage. Patient asymptomatic on reevaluation. Pt reports dizziness with nausea and nonbloody nonbilious vomiting in the setting of mild hypomagnesemia, chronic stable macrocytic anemia and nonspecific elevated liver function test. Pt denies any prior abdominal pain- CT abdomen pelvis reviewed from the shows hepatic steatosis. Patient reports no further nausea, vomiting or dizziness. Blood pressure is 135/85 with heart rate of 92 in ED room. Patient denies any associated anxiety. Patient states she feels well and requests to be discharged home. Per [facility] policy, patient with normal renal function, no indication to adjust medications. Recommend urgent follow-up with PCP in 24 to 40 hours for blood pressure magnesium check. Will discharge home with strict ED return precautions were given for chest pain, dyspnea, neurologic deficits, syncope, aphasia or facial droop. Encouraged urgent outpatient follow-up with PMD and dermatology. Life-threatening processes were considered but are low suspicion at this time, given history, physical exam and ED workup. Pt was educated on all prescription medications and adverse effects. All patient's questions were answered and pt was stable at time of discharge. Life/limb-threatening differential includes but is not limited to, acute coronary syndrome/myocardial infarction, Boerhaave's, DKA, gastrointestinal bleeding, intracranial hemorrhage, ischemic bowel, meningitis, sepsis, surgical abdomen (AAA), toxidrome (drug over/overdose/carbon monoxide, etc), ovarian/testicular torsion, trauma, or infection/sepsis. I spoken with the patient and her caregivers. I explained the patient's condition, diagnoses and treatment plan based on the information available to me at this time. I have answered the patient and her caregiver's questions and addressed any concerns. The patient and her caregivers have a good understanding of patient's diagnosis, condition and treatment plan as can be expected at this point. Vital signs have been stable. Patient's condition is stable and appropriate for discharge from the emergency department. Patient will pursue further outpatient evaluation with primary care physician or other designated or consulting physician as outlined in the discharge instructions. The patient and/or caregivers are agreeable to this plan of care and follow-up instructions have been explained in detail. The patient and/or caregivers have received these instructions in written form and have expressed an understanding of the discharge instructions. The patient and/or caregivers are aware that any significant change of condition or worsening of symptoms should prompt immediate return to this or the closest emergency department or call to 911. (SELVIN VILLARREAL DO) Irma Disclaimer: Irma Disclaimer: This electronic medical record was generated, in whole or in part, using a voice recognition dictation system. (NELL EBASLEY DO) Departure Departure Impression: Primary Impression: Uncontrolled hypertension Additional Impressions: Hypomagnesemia Elevated liver function tests Microcytic anemia Hepatic steatosis Disposition: 01 HOME / SELF CARE / HOMELESS Condition: STABLE Referrals: EVARISTO WILCOX (PCP) Follow-up with your primary care physician in 24 to 48 hours OR FOLLOW UP WITH FAMILY MEDICINE: [address] [facility] [address] [place] [address] Patient Instructions: Hypertension, Hypomagnesemia Additional Instructions: FOLLOW UP WITH PCP FOR blood pressure check in 24 to 48 hours and repeat mag nesium level FOLLOW UP WITH HEPATOLOGY: FOR DEFINITIVE MANAGEMENT for hepatic steatosis and elevated liver enzymes [facility] [address] [place] [place] [address] to schedule appointment: [phone] EMERGENCY DEPARTMENT GENERAL DISCHARGE INSTRUCTIONS Thank you for coming to [facility] Emergency Department (ED) today and trusting us with you care. We trust that you had a positive experience in our Emergency Department. If you wish to speak to the department management, you may call the Director at [phone]. YOUR FOLLOW UP INSTRUCTIONS ARE FOLLOWS: 1. Do you have a private Doctor? If you do not have a private doctor, please ask for a resource list of physicians or clinics that may be able to assist you with follow up care. 2. The Emergency Physicain has interpreted your x-rays. The X-Ray specialist will also review them. If there is a change in the findings, you will be notified in 48 hours when at all possible. 3. A lab test or culture has been done, your results will be reviewed and you will be notified if you need a change in treatment. ADDITIONAL INSTRUCTIONS AND INFORMATION: 1. Your care today has been supervised by a physician who is specially trained in emergency care. Many problems require more than one evaluation for a complete diagnosis and treatment. We recommend that you schedule your follow up appointment as recommended to ensure complete treatment of you illness or injury. If you are unable to obtain follow up care and continue to have a problem, or if your condition worsens, we recommend that you return to the ED. 2. We are not able to safely determine your condition over the phone nor are we able to give sound medical advice over the phone. For these safety reasons, if you call for medical advice we will ask you to come to the ED for further evaluation. 3. If you have any questions regarding these discharge instructions please call the ED at [phone]. SAFETY INFORMATION: In the interest of safety, wellness, and injury prevention; we encourage you to wear your sealbelt, if you smoke; quite smoking, and we encourage family to use a protective helmet for bicycling and other sporting events that present an increased risk for head injury. IF YOUR SYMPTOMS WORSEN OR NEW SYMPTOMS DEVELOP, OR YOU HAVE CONCERNS ABOUT YOUR CONDITION; OR IF YOUR CONDITION WORSENS WHILE YOU ARE WAITING FOR YOUR FOLLOW UP APPOINTMENT; EITHER CONTACT YOUR PRIMARY CARE DOCTOR, THE PHYSICIAN WHOSE NAME AND NUMBER YOU WERE GIVEN, OR RETURN TO THE ED IMMEDIATELY. NELL BEASLEY DO Jan 31, 2021 05:42 SELVIN VILLARREAL DO Jan 31, 2021 06:40
[2021-01-31] MEDS ORDERED: METOCLOPRAMIDE HCL 10 MG/2 ML VIAL. IVP ONE (05:45)
[2021-01-31] MEDS ORDERED: ONDANSETRON PF 4 MG/2 ML VIAL. IVP ONE (05:45)
[2021-01-31] MEDS ORDERED: METOPROLOL IV PUSH 5 MG/5 ML VIAL. IVP ONE (05:45)
--- NOTE | 2021-01-31 06:27 | RAD ---
CT HEAD/BRAIN WO Date: 01/31/2021 5:49 AM Clinical Indication: Reason: DIZZINESS, HYPERTENSIVE NAUSEA, VOMITING / Spl. Instructions: / History : Comparison: None. Technique: 5 mm axial tomographic images were obtained of the head without contrast. These were view ed on brain and bone windows. One or more of the following dose reduction techniques were utilized: A utomated exposure control (AEC), Adjustment of mA and/or kV according to patient size, Use of iterati ve reconstruction technique such as ASiR, CT scan done according to ALARA and image gently/image winslow ly Findings: The brain parenchyma is normal in attenuation. No intra- or extra-axial mass or fluid collection. No acute hemorrhage. The ventricles are normal in size, shape, and morphology. The freeman-white matter gagan ction is normal. The subarachnoid cisterns are patent. The visualized paranasal sinuses are normal. The visualized portions of the orbits and globes are no rmal. The mastoid air cells are clear. The rubber roller grinder operator topogram shows no lytic lesion or fracture. Impression: No acute intracranial process. Electronically signed by: Dano Fuller MD (01/31/2021 6:24 AM) [facility]
[2021-01-31 07:01] LABS: CALCIUM 8.4 mg/dL (8.5-10.1); CREATININE 0.7 mg/dL (0.6-1.0); GFR 92.2; POTASSIUM 3.8 mmol/L (3.5-5.1)
[2021-01-31 07:07] LABS: ALBUMIN 3.1 g/dL (3.4-5.0); ALBUMIN/GLOBULIN RATIO 0.8 (1.0-1.7); MAGNESIUM 1.3 mg/dL (1.8-2.4); TOTAL BILIRUBIN 0.3 mg/dL (0.2-1.0); TOTAL PROTEIN 6.9 g/dL (6.4-8.2)
[2021-01-31 07:15] LABS: BASO % 0 % (0-3); EOS # 0.1 x10^3/uL (0.0-0.7); EOS % 1 % (0-3); HEMATOCRIT 33.7 % (36.0-47.0); HEMOGLOBIN 11.2 g/dL (12.0-15.5); LYMPH # 0.8 x10^3/uL (1.0-4.8); LYMPH % 14 % (24-48); MEAN CORPUSCULAR HEMOGLOBIN 26 pg (25-35); MEAN CORPUSCULAR HGB CONC 33 g/dL (31-37); MEAN CORPUSCULAR VOLUME 78 fL (79-100); MONO # 0.3 x10^3/uL (0.0-1.1); MONO % 5 % (0-9); NEUT # 4.8 x10^3/uL (1.8-7.7); NEUT % 80 % (31-73); PLATELET COUNT 202 x10^3/uL (140-400); RED BLOOD COUNT 4.31 x10^6/uL (3.50-5.40); RED CELL DISTRIBUTION WIDTH 15.4 % (11.5-14.5); WHITE BLOOD COUNT 5.9 x10^3/uL (4.0-11.0)
[2021-01-31] MEDS ORDERED: MAGNESIUM SULFATE 2GM 50 ML IV ONE (07:30)
[2021-01-31 08:19] LABS: BILIRUBIN,URINE NEGATIVE (NEG); CLARITY,URINE CLEAR; COLOR,URINE AMBER; NITRITE,URINE NEGATIVE (NEG); PROTEIN,URINE 100 mg/dL (NEG-TRACE)
[2021-01-31 08:30] VITALS: BP 150/68
[2021-01-31 08:38] LABS: BACTERIA,URINE 0 /HPF (0-FEW); RBC,URINE TNTC /HPF (0-2); WBC,URINE 0 /HPF (0-4)
== END 2021-01-31 09:14 | disposition home or self-care (01) ==
LOC: ER 05:20
DX: I10 Essential (primary) hypertension (principal); E83.42 Hypomagnesemia; R79.89 Other specified abnormal findings of blood chemistry; D50.9 Iron deficiency anemia, unspecified; K76.0 Fatty (change of) liver, not elsewhere classified; E11.9 Type 2 diabetes mellitus without complications; J45.909 Unspecified asthma, uncomplicated; Z90.89 Acquired absence of other organs; Z88.8 Allergy status to other drugs, medicaments and biological substances
CPT/HCPCS: 36415; 70450; 80053; 81001; 83690; 83735; 83880; 84484; 85025; 87086; 96365; 96375; 99285; J2060; J2405; J2765; J3475; J3490